=== PATIENT | female | born 1985 | race Caucasian/White ===

== ENCOUNTER 2021-10-19 02:19 | Emergency (ER) | payer MEDICAID, SELFPAY ==
[2021-10-19] VITALS (7 sets, daily range): BP systolic 106–137; BP diastolic 54–87; PULSE 63–90; RESP 12–21; TEMP 37.3; O2SAT 93–99; BMI 36.3
--- NOTE | ~2021-10-19 | US_ITS ---
EXAMINATION: US OB limited CLINICAL INFORMATION: Reason for Exam Twins, 6months?, PAIN COMPARISON: None. TECHNIQUE: Transabdominal ultrasound. FINDINGS: Single live intrauterine gestation is identified. M-mode interrogation demonstrates a heart rate of 129 bpm. No retrocardiac fluid collections identified. This examination does not comprise a comprehensive survey. Measurements obtained include the following: Biparietal diameter 4.73 cm Occipital frontal diameter 5.5 cm. Head circumference 17.5 cm. Abdominal circumference 14.92 cm Femur length 3.33 cm. No gross dysmorphic features are identified. No gross pleural effusions. Qualitatively normal volume of amniotic fluid. The visualized placenta is normal in appearance. Normal motion is noted during the exam. The cervical length measures 3.78 cm. The ovaries normal in appearance. The right ovary measures 3.0 cm x 1.6 and by 1.9 cm; left ovary measures 2.4 cm x 1.6 x 1.5 cm. US/US OB limited IMPRESSION: Single live intrauterine . Estimated weight 12 ounces. Sonographic estimated gestational age 20 weeks 3 days.
[2021-10-19 02:55] LABS: MANUAL DIFF FLAG NO
[2021-10-19 02:58] LABS: Basophils Percent Auto 0.3 % (0-2); Eosinophils Absolute Auto 0.1 X10*3/uL (0.0-0.4); Hematocrit 39.3 % (37.0-47.0); Hemoglobin 13.2 g/dl (12.0-16.0); Imm Gran Abs Auto 0.06 X10*3/uL (0.00-0.03); Imm Gran Pct Auto 0.5 % (0.0-0.4); Lymphocytes Absolute Auto 1.7 X10*3/uL (1.2-4.9); Lymphocytes Percent Auto 14.5 % (20-40); Mean Corpuscular HGB Conc 33.6 g/dl (31.0-35.0); Mean Corpuscular Hemoglobin 29.4 pg (27.0-33.0); Mean Corpuscular Volume 87.5 fL (80.0-98.0); Mean Platelet Volume 10.5 fL (9.4-12.3); Monocytes Absolute Auto 0.9 X10*3/uL (0.1-1.2); Monocytes Percent Auto 7.6 % (2-11); Neutrophils Percent Auto 76.1 % (45-73); Platelet Count 327 X10*3/uL (160-400); Red Blood Count 4.49 X10*6/uL (4.20-5.50); Red Cell Distribution Width 13.4 % (11.0-16.0); White Blood Count 11.9 X10*3/uL (4.8-10.8)
--- NOTE | 2021-10-19 02:58 | PC.NURSE ---
Sree BARRIOS overheard pt talking to herself in the room, while curtains were closed. Pt sometimes states I'm having contractions, but this condition appears to be very short and is gone in a few seconds. Blood tests have been ordered to test for . Pt states she is with twins.
[2021-10-19] MEDS: 0.9 % Sodium Chloride 1,000 ML 999 ML IV ×2 (03:03→04:37)
[2021-10-19 03:17] LABS: Alanine Aminotransferase 45 U/L (0-31); Albumin Level 3.7 g/dL (3.5-5.0); Alkaline Phosphatase 58 U/L (39-117); Anion Gap 15 (12-20); Aspartate Amino Transferase 39 U/L (5-31); Bilirubin Total 0.7 mg/dL (0.0-1.0); Blood Urea Nitrogen 5 mg/dL (9-16); Calcium 9.3 mg/dL (8.4-10.2); Carbon Dioxide 25 mmol/L (22-29); Chloride 102 mmol/L (96-108); Creatinine Clr Calc Pharmacy 133.3; Estimated Glomerular Filt Rate > 60; Glucose Random 81 mg/dL (60-115); Sodium 138 mmol/L (135-145); Total Protein 6.9 g/dL (6.5-8.0)
[2021-10-19 03:23] LABS: HCG Quantitative 12624 mIU/mL
[2021-10-19 03:42] LABS: Magnesium 1.7 mg/dL (1.6-2.6)
--- NOTE | 2021-10-19 03:52 | ED.GENADULT ---
HPI - General Adult General Chief complaint: Seizure Stated complaint: allergic reaction/dehydration Time Seen by Provider: 10/19/21 02:27 Source: patient Mode of arrival: EMS History of Present Illness HPI narrative: 36-year-old female who is brought in by EMS after being found in a parking lot across from [facility] as stating that she does not have anywhere to go as she is waiting for emergency housing . As per EMS a bystander called EMS/911. Patient states multiple symptoms to include seizures this evening as well as allergic reaction and also reports that she is 6 months with twins and that she is followed by her primary care provider but states she has also been seen at [facility], [facility], and [place]. With patient is asked have any pregnancies has she had she reports several . She otherwise denies any current complications and states that she wishes to be transferred to [facility] if she cannot have the baby here. She is also requesting water consider throat is dry as she is dehydrated . When patient is asked ruiz she is dehydrated she states that it is because she is and despite drinking water she pees too much . Patient states that she is on gabapentin for several conditions to include her seizure condition. Otherwise, she denies any fever, chills, nausea, vomiting, diarrhea. Related Data Allergies Allergy/AdvReac Type Severity Reaction Status Date / Time amoxicillin Allergy Unknown hives Verified 07/21/17 00:00 penicillin V Allergy Unknown RASH Verified 07/21/17 00:00 fish Allergy Unknown anaphylaxis Uncoded 07/21/17 00:00 NUTS Allergy Unknown anaphylaxis Uncoded 07/21/17 00:00 Review of Systems Review of Systems: Pertinent positives and negatives as stated in HPI 10 point review of systems is otherwise negative. PMFSH Past Medical History Source: nursing notes reviewed Physical Exam ED Vital Signs: Vital Signs - 24 hr 10/19/21 02:28 10/19/21 04:22 10/19/21 06:04 Temperature 99.1 F Pulse Rate 81 65 63 Respiratory Rate 18 20 18 Blood Pressure 131/83 108/62 106/54 L Pulse Oximetry 98 99 96 BMI result Body Mass Index 36.3 VITAL SIGNS: Reviewed. GENERAL: Well developed, well nourished, in no acute distress. HEAD: Normocephalic/atraumatic EYES: PERRLA, EOMI intact without pain, no nystagmus EARS: Ext canals without abnormality OROPHARYNX: no oral lesions noted, posterior pharynx clear, no tongue / lip/facial swelling LUNGS: Normal breath sounds. No adventitious sounds or accessory muscle use. SpO2<98> CARDIOVASCULAR: Regular rate and rhythm without noted murmurs ABDOMEN:Gravid,Soft, non-tender, non-distended with bowel sounds. MUSCULOSKELETAL: No tenderness, deformities, or effusions noted on gross inspection. EXTREMITIES: No cyanosis, clubbing or edema. SKIN: Inspection of the skin reveals no rashes NEUROLOGIC: Alert and oriented x 4. Strength and sensation to light touch were grossly intact x 4. Course Course Course Narrative: 36-year-old female with history and clinical presentation suggestive of current , but due to patient's concerning reports with regards to the circumstances surrounding her being brought to the hospital, she does not appear to be postictal at this time, and behavior somewhat unusual. There is no evidence to suggest angioedema or anaphylaxis and no noted rashes on clinical exam. Will obtain basic labs, confirm , check for infection, and also obtain ultrasound. On review all investigations there is minimal leukocytosis which is likely associated with current state, ultrasound demonstrates a single IUP at approximately 5 weeks. patient has no complaints of abdominal pain or vaginal bleeding. Patient further endorses that the oncology social worker Ilia Reese(sp?) out of [facility] has been trying to help her get emergency housing. Patient will remain here in the emergency room so that case management can evaluate the status on patient's lodging. Medical Decision Making Lab Data Result diagrams: 10/19/21 02:42 10/19/21 02:42 Labs: Lab Results 10/19/21 10/19/21 Range/Units 02:42 02:42 WBC 11.9 H (4.8-10.8) X10*3/uL RBC 4.49 (4.20-5.50) X10*6/uL Hgb 13.2 (12.0-16.0) g/dl Hct 39.3 (37.0-47.0) % MCV 87.5 (80.0-98.0) fL MCH 29.4 (27.0-33.0) pg MCHC 33.6 (31.0-35.0) g/dl RDW 13.4 (11.0-16.0) % Plt Count 327 (160-400) X10*3/uL MPV 10.5 (9.4-12.3) fL Immature Gran % (Auto) 0.5 H (0.0-0.4) % Neut % (Auto) 76.1 H (45-73) % Lymph % (Auto) 14.5 L (20-40) % [place] % (Auto) 7.6 (2-11) % Eos % (Auto) 1.0 (0-4) % Baso % (Auto) 0.3 (0-2) % Lymph # (Auto) 1.7 (1.2-4.9) X10*3/uL [place] # (Auto) 0.9 (0.1-1.2) X10*3/uL Eos # (Auto) 0.1 (0.0-0.4) X10*3/uL Baso # (Auto) 0.0 (0.0-0.2) X10*3/uL Abs Immat Gran (auto) 0.06 H (0.00-0.03) X10*3/uL Absolute Neuts (auto) 9.0 H (2.0-8.3) x10*3/uL Absolute Nucleated RBC 0.000 (0.0-0.012) X10*3/uL Nucleated RBC % (auto) 0.0 (0.0-0.2) /100WBC Sodium 138 (135-145) mmol/L Potassium 4.0 (3.3-5.1) mmol/L Chloride 102 (96-108) mmol/L Carbon Dioxide 25 (22-29) mmol/L Anion Gap 15 (12-20) BUN 5 L (9-16) mg/dL Creatinine 0.62 (0.5-1.4) mg/dL Estim Creat Clear Calc 133.3 Estimated GFR > 60 Random Glucose 81 (60-115) mg/dL Calcium 9.3 (8.4-10.2) mg/dL Magnesium 1.7 (1.6-2.6) mg/dL Total Bilirubin 0.7 (0.0-1.0) mg/dL AST 39 H (5-31) U/L ALT 45 H (0-31) U/L Alkaline Phosphatase 58 (39-117) U/L Total Protein 6.9 (6.5-8.0) g/dL Albumin 3.7 (3.5-5.0) g/dL Beta HCG, Quant 40074 mIU/mL Discharge Plan Discharge Clinical Impression: Currently , Seizure disorder, Pseudotumor cerebri Patient Disposition: Still a Patient
[2021-10-19 10:59] LABS: Glucose, Whole Blood 87 mg/dL (60-115)
[2021-10-19] MEDS: Folic Acid 1 MG TABLET PO (11:33)
[2021-10-19] MEDS: Multivitamin TABLET 1 TAB PO (11:33)
[2021-10-19] MEDS: Gabapentin 300 MG CAPSULE PO (12:23)
--- NOTE | 2021-10-19 15:57 | MHC.CM.ED ---
Received case management consult overnight. Patient came to ER after being brought in by EMS. Patient is homeless. Patient has a history of being bipolar. Patient was at [facility] on 10/08 for AMS. Patient was not found to be inpatient level of care. Patient has been speaking to herself. Dr Bhatt aware. Patient was transferred to the pod for a Care Team assessment. Patient wanted to be discharged. Dr Bhatt aware and agreeable. List of homeless shelters provided. Continue to monitor for d/c needs.
== END 2021-10-19 12:56 | disposition home or self-care (01) ==
PROVIDERS: Student in an Organized Health Care Education/Training Program; Emergency Provider Emergency Medicine
DX: O99.351 Diseases of the nervous system complicating pregnancy, first trimester (principal); G40.909 Epilepsy, unspecified, not intractable, without status epilepticus; G93.2 Benign intracranial hypertension; Z3A.01 Less than 8 weeks gestation of pregnancy; Z79.899 Other long term (current) drug therapy
CPT/HCPCS: 36415; 76815; 80053; 82947; 83735; 84702; 85025; 96360; 96361; 99284

== ENCOUNTER 2022-01-11 16:11 | Emergency (ER) | payer MEDICAID, SELFPAY ==
[2022-01-11] VITALS (7 sets, daily range): BP systolic 113–188; BP diastolic 54–92; PULSE 71–84; RESP 16–18; TEMP 35.8–36.6; O2SAT 93–98; BMI 41.1
--- NOTE | 2022-01-11 | ECG_ITS ---
Test Reason : CHESTPAIN Blood Pressure : / mmHG Vent. Rate : 083 BPM Atrial Rate : 083 BPM P-R Int : 134 ms QRS Dur : 084 ms QT Int : 386 ms P-R-T Axes : 001 002 024 degrees QTc Int : 453 ms Normal sinus rhythm Normal ECG No previous ECGs available Referred By: Generic ED Physician Electronically Signed By:Diego Paz
--- NOTE | ~2022-01-11 | XR_ITS ---
EXAMINATION: XR CHEST CLINICAL INFORMATION: Weakness COMPARISON: None TECHNIQUE: Frontal view of the chest was obtained. FINDINGS: No significant abnormality is noted involving the heart, lungs, mediastinum, bony thorax or soft tissues. XR/XR chest 1V IMPRESSION: Unremarkable examination.
[2022-01-11 17:23] LABS: Basophils Percent Auto 0.2 % (0-2); Eosinophils Absolute Auto 0.1 X10*3/uL (0.0-0.4); Eosinophils Percent Auto 0.7 % (0-4); Hematocrit 36.7 % (37.0-47.0); Hemoglobin 12.3 g/dl (12.0-16.0); Imm Gran Abs Auto 0.17 X10*3/uL (0.00-0.03); Imm Gran Pct Auto 1.2 % (0.0-0.4); Lymphocytes Absolute Auto 1.7 X10*3/uL (1.2-4.9); Lymphocytes Percent Auto 11.6 % (20-40); MANUAL DIFF FLAG NO; Mean Corpuscular HGB Conc 33.5 g/dl (31.0-35.0); Mean Corpuscular Hemoglobin 28.4 pg (27.0-33.0); Mean Corpuscular Volume 84.8 fL (80.0-98.0); Monocytes Percent Auto 6.9 % (2-11); Neutrophils Absolute Auto 11.4 x10*3/uL (2.0-8.3); Neutrophils Percent Auto 79.4 % (45-73); Platelet Count 280 X10*3/uL (160-400); Red Blood Count 4.33 X10*6/uL (4.20-5.50); Red Cell Distribution Width 14.6 % (11.0-16.0); White Blood Count 14.4 X10*3/uL (4.8-10.8)
[2022-01-11 17:42] LABS: Anion Gap 13 (12-20); Blood Urea Nitrogen 3 mg/dL (9-16); Calcium 8.7 mg/dL (8.4-10.2); Carbon Dioxide 22 mmol/L (22-29); Chloride 105 mmol/L (96-108); Creatinine Clr Calc Pharmacy 158.4; Estimated Glomerular Filt Rate > 60; Glucose Random 85 mg/dL (60-115); Lipase 5 U/L (8-78); Potassium 3.9 mmol/L (3.3-5.1); Sodium 136 mmol/L (135-145)
--- NOTE | 2022-01-11 17:49 | ED_ITS ---
HPI - General Adult General Chief complaint: Abdominal Pain Stated complaint: weakness Time Seen by Provider: 01/11/22 17:42 Source: patient Mode of arrival: ambulatory Limitations: no limitations History of Present Illness HPI narrative: 36-year-old female patient is 8 months as per patient consider as high risk follow at [facility], patient presented today for generalized weakness, vomiting, and diarrhea. Patient also been having high blood pressure and chest heaviness patient's s ymptoms started a month ago patient been having bilateral lower extremities swelling. Patient emergency department is able to tolerate p.o. intake and drinking water. Patient declined right upper quadrant pain or tenderness, or blurry vision. Patient declined vaginal discharge or bleed, patient been feeling uterine contraction every now and then but not regularly. No headache, no blurry vision, no neck stiffness, no CP, no SOB, no fever, or chills. No sick contacts, no recent travel. Related Data Home Medications Medication Instructions Recorded Confirmed gabapentin 300 mg tablet 300 mg PO TID 10/19/21 10/19/21 vitamin-ferrous fumarate tab PO 10/19/21 40 mg iron-folic acid 1 mg tablet Allergies Allergy/AdvReac Type Severity Reaction Status Date / Time amoxicillin Allergy Unknown hives Verified 01/11/22 17:02 penicillin V Allergy Unknown RASH Verified 01/11/22 17:02 fish Allergy Unknown anaphylaxis Uncoded 01/11/22 17:02 NUTS Allergy Unknown anaphylaxis Uncoded 01/11/22 17:02 Review of Systems Review of Systems: All other systems are reviewed and are negative Constitutional: Reports as per HPI and Reports no additional constitutional complaints Eyes: Reports as per HPI and Reports no additional eye complaints Reports system reviewed and no additional complaints, except as documented Cardiovascular: Reports as per HPI and Reports no additional cardiovascular complaints Respiratory: Reports as per HPI and Reports no additional respiratory complaints Gastrointestinal: Reports as per HPI and Reports no additional gastrointestinal complaints Genitourinary: Reports no additional female genitourinary complaints Musculoskeletal: Reports no additional musculoskeletal complaints Skin/Breast: Reports system reviewed and no additional complaints, except as docu Psychiatric: Reports no additional psychiatric complaints Endocrine: Reports no additional endocrine complaints Hematologic/Lymphatic: Reports no additional hematologic/lymphatic complaints Allergic/Immunologic: Reports no additional allergic/immunologic complaints Reports system reviewed and no additional complaints, except as documented and Reports Abnormal speech present [facility] Social History Social History Alcohol intake: never Patient Tobacco Use Status: Current everyday Tobacco user Use of substances other than those prescribed or required for medical reasons: No Advance Directives: Yes Advance Directives Information Provided: Yes Advance Directives on File: No Physical Exam ED Vital Signs: Vital Signs - 24 hr 01/11/22 16:59 01/11/22 18:00 01/11/22 18:10 Temperature 96.4 F L 97.9 F Pulse Rate 78 77 Respiratory Rate 18 16 Blood Pressure 134/79 113/56 L Pulse Oximetry 95 Oxygen Delivery Method Room Air Room Air 01/11/22 18:22 01/11/22 19:40 Temperature 97 F Pulse Rate 71 Respiratory Rate 17 Blood Pressure 118/61 Pulse Oximetry 98 97 Oxygen Delivery Method Room Air Room Air BMI result Body Mass Index 41.1 Vital signs have been reviewed as appeared to be correct. Blood pressure normal. Heart rate normal. Respiration rate normal. Temperature normal. Oxygen saturation normal. Appearance: Alert. Oriented X3. No acute distress. Head: Normal external exam. Normocephalic. Atraumatic. No Marie signs noted. No raccoon eyes noted Eyes: PERRLA. EOMI. Conjunctiva and sclera normal. Eyelids normal. ENT: TM's Normal. Pharynx normal. Uvula midline. Moist mucous membranes. No trismus noted. No drooling noted. No muffled voice noted. Neck: Normal inspection. Neck supple. FROM. No adenopathy. Thyroid Normal. No meningeal signs. No neck mass noted. CVS: Normal heart rate and rhythm. Heart sound normal. No murmurs noted. Pulses normal throughout. Respiratory: No respiratory distress. Painless inspiration. Breath sounds normal. No wheezes/rales/rhonchi noted. Chest nontender. No accessory muscle usage noted or decreased air movement noted. Abdomen: Soft and nontender. Bowel sounds normal in all 4 quadrants. No distention noted. No organomegaly noted. No visible injury noted. 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 Back: No CVA tenderness. Full range of motion noted. Skin: Skin warm and dry. Normal skin color. Normal skin turgor. No rashes/lesions/lacerations noted. Extremities: No lower extremity edema. Extremities exhibit normal range of motion. Extremities nontender. Neuro: Oriented X 3. Cranial nerve exam: II-XII are grossly intact No motor deficit. No sensory deficit. Reflexes normal. Course Course Course Narrative: This is a G11P 6, 8 months follows [facility] Ob patient came in with nonspecific complaints of generalized weakness, and overall not feeling well. Patient has stable vital signs not concern of pulmonary underlying disease in particular PE with regular pulse and respiratory rate and O2 sat. Patient also has unremarkable chest x-ray. Serial abdominal exam revealed nonspecific tenderness which felt to be normal pain for 8 months with no rebound tenderness or guarding. Pelvic exam showed no active labor. Patient has leukocytosis with increased immature granulocyte 1.2% shift patient down to have UTI without clinically pyelonephritis. The patient is overall ambiguous historian, I discussed the case at we 2 at [facility] with Dr. Bojorquez will transfer the patient to [facility] by ambulance for further evaluation. Medical Decision Making Lab Data Lab results reviewed: Yes I reviewed the patient's lab results. Result diagrams: 01/11/22 17:17 01/11/22 17:17 Labs: Lab Results 01/11/22 01/11/22 01/11/22 Range/Units 17:17 17:17 18:58 WBC 14.4 H (4.8-10.8) X10*3/uL RBC 4.33 (4.20-5.50) X10*6/uL Hgb 12.3 (12.0-16.0) g/dl Hct 36.7 L (37.0-47.0) % MCV 84.8 (80.0-98.0) fL MCH 28.4 (27.0-33.0) pg MCHC 33.5 (31.0-35.0) g/dl RDW 14.6 (11.0-16.0) % Plt Count 280 (160-400) X10*3/uL MPV 10.0 (9.4-12.3) fL Immature Gran % (Auto) 1.2 H (0.0-0.4) % Neut % (Auto) 79.4 H (45-73) % Lymph % (Auto) 11.6 L (20-40) % [place] % (Auto) 6.9 (2-11) % Eos % (Auto) 0.7 (0-4) % Baso % (Auto) 0.2 (0-2) % Lymph # (Auto) 1.7 (1.2-4.9) X10*3/uL [place] # (Auto) 1.0 (0.1-1.2) X10*3/uL Eos # (Auto) 0.1 (0.0-0.4) X10*3/uL Baso # (Auto) 0.0 (0.0-0.2) X10*3/uL Abs Immat Gran (auto) 0.17 H (0.00-0.03) X10*3/uL Absolute Neuts (auto) 11.4 H (2.0-8.3) x10*3/uL Absolute Nucleated RBC 0.000 (0.0-0.012) X10*3/uL Nucleated RBC % (auto) 0.0 (0.0-0.2) /100WBC Sodium 136 (135-145) mmol/L Potassium 3.9 (3.3-5.1) mmol/L Chloride 105 (96-108) mmol/L Carbon Dioxide 22 (22-29) mmol/L Anion Gap 13 (12-20) BUN 3 L (9-16) mg/dL Creatinine 0.56 (0.5-1.4) mg/dL Estim Creat Clear Calc 158.4 Estimated GFR > 60 Random Glucose 85 (60-115) mg/dL Lactic Acid (0.5-2.0) mmol/L Calcium 8.7 D (8.4-10.2) mg/dL Total Bilirubin 0.6 (0.0-1.0) mg/dL Direct Bilirubin 0.3 (0.0-0.5) mg/dL AST 14 D (5-31) U/L ALT 11 (0-31) U/L Alkaline Phosphatase 81 D (39-117) U/L Total Protein 6.4 L (6.5-8.0) g/dL Albumin 3.4 L (3.5-5.0) g/dL Lipase 5 L (8-78) U/L Urine Color Urine Appearance Urine pH (5.0-8.0) Ur Specific [place] (1.005-1.025) Urine Protein (NEG-TRACE) MG/DL Urine Glucose (UA) (NEG) MG/DL Urine Ketones (NEG) MG/DL Urine Blood (NEG) Urine Nitrite (NEG) Ur Leukocyte Esterase (NEG) Urine RBC (0) /HPF Urine WBC (0-4) /HPF Ur Squamous Epith Cells /LPF Urine Bacteria /LPF Influenza Type A (PCR) NEGATIVE (Negative) Influenza Type B (PCR) NEGATIVE (Negative) RSV RNA Qual (PCR) NEGATIVE (Negative) SARS-CoV-2 RNA (RT-PCR) NEGATIVE (Negative) 01/11/22 01/11/22 Range/Units 20:00 22:08 WBC (4.8-10.8) X10*3/uL RBC (4.20-5.50) X10*6/uL Hgb (12.0-16.0) g/dl Hct (37.0-47.0) % MCV (80.0-98.0) fL MCH (27.0-33.0) pg MCHC (31.0-35.0) g/dl RDW (11.0-16.0) % Plt Count (160-400) X10*3/uL MPV (9.4-12.3) fL Immature Gran % (Auto) (0.0-0.4) % Neut % (Auto) (45-73) % Lymph % (Auto) (20-40) % [place] % (Auto) (2-11) % Eos % (Auto) (0-4) % Baso % (Auto) (0-2) % Lymph # (Auto) (1.2-4.9) X10*3/uL [place] # (Auto) (0.1-1.2) X10*3/uL Eos # (Auto) (0.0-0.4) X10*3/uL Baso # (Auto) (0.0-0.2) X10*3/uL Abs Immat Gran (auto) (0.00-0.03) X10*3/uL Absolute Neuts (auto) (2.0-8.3) x10*3/uL Absolute Nucleated RBC (0.0-0.012) X10*3/uL Nucleated RBC % (auto) (0.0-0.2) /100WBC Sodium (135-145) mmol/L Potassium (3.3-5.1) mmol/L Chloride (96-108) mmol/L Carbon Dioxide (22-29) mmol/L Anion Gap (12-20) BUN (9-16) mg/dL Creatinine (0.5-1.4) mg/dL Estim Creat Clear Calc Estimated GFR Random Glucose (60-115) mg/dL Lactic Acid 1.3 (0.5-2.0) mmol/L Calcium (8.4-10.2) mg/dL Total Bilirubin (0.0-1.0) mg/dL Direct Bilirubin (0.0-0.5) mg/dL AST (5-31) U/L ALT (0-31) U/L Alkaline Phosphatase (39-117) U/L Total Protein (6.5-8.0) g/dL Albumin (3.5-5.0) g/dL Lipase (8-78) U/L Urine Color YELLOW Urine Appearance HAZY Urine pH 6.5 (5.0-8.0) Ur Specific [place] 1.010 (1.005-1.025) Urine Protein NEG (NEG-TRACE) MG/DL Urine Glucose (UA) NEG (NEG) MG/DL Urine Ketones 40 (NEG) MG/DL Urine Blood NEG (NEG) Urine Nitrite NEG (NEG) Ur Leukocyte Esterase 3+ H (NEG) Urine RBC 0-2 (0) /HPF Urine WBC 5-9 H (0-4) /HPF Ur Squamous Epith Cells 3+ /LPF Urine Bacteria 4+ /LPF Influenza Type A (PCR) (Negative) Influenza Type B (PCR) (Negative) RSV RNA Qual (PCR) (Negative) SARS-CoV-2 RNA (RT-PCR) (Negative) Imaging Data Chest x-ray: Attestation: I personally reviewed and interpreted this imaging study as follows: Radiologist's impression: Unremarkable examination. Discharge Plan Discharge Clinical Impression: Weakness generalized Patient Disposition: Xfer [facility] Hospital Transfer Details: We2 [facility] Prescriptions: No [facility] 40 mg iron-1 mg Tablet PO gabapentin 300 mg Tablet 300 mg PO TID
[2022-01-11 18:01] LABS: Alanine Aminotransferase 11 U/L (0-31); Albumin Level 3.4 g/dL (3.5-5.0); Alkaline Phosphatase 81 U/L (39-117); Aspartate Amino Transferase 14 U/L (5-31); Bilirubin Direct 0.3 mg/dL (0.0-0.5); Bilirubin Total 0.6 mg/dL (0.0-1.0); Total Protein 6.4 g/dL (6.5-8.0)
[2022-01-11] MEDS: 0.9 % Sodium Chloride 1,000 ML 999 ML IV ×2 (18:19→21:55)
[2022-01-11] MEDS: Acetaminophen 325 MG TABLET 650 MG PO (19:31)
[2022-01-11 19:43] LABS: Influenza A PCR NEGATIVE (Negative); Influenza B PCR NEGATIVE (Negative); Resp Syncy Virus RNA Qual PCR NEGATIVE (Negative); SARS COV2 PCR INHOUSE NEGATIVE (Negative)
[2022-01-11 20:11] LABS: Appearance Urine HAZY; Color Urine YELLOW; Glucose Urine UA NEG (NEG); Leukocyte Esterase Urine 3+ (NEG); Nitrite Urine NEG (NEG); PH 6.5 (5.0-8.0); UACC Culture Trigger YES; Urine Blood NEG (NEG); Urine Ketones 40 MG/DL (NEG); Urine Protein NEG (NEG-TRACE)
[2022-01-11 20:35] LABS: Bacteria Urine 4+ /LPF; RBC Urine 0-2 /HPF (0); Squamous Epithelial Cell Urine 3+ /LPF
[2022-01-11 22:27] LABS: Lactic Acid 1.3 mmol/L (0.5-2.0)
--- NOTE | 2022-01-11 23:46 | PC.NURSE ---
This US/Pct called [facility] transfer line at 2210 for ,awaiting a call back.At 2258 received a call back pt was excepted by pt is going to W2. [facility] was called at 2225 for a [facility] transfer ETA of an hour MD aware and RN aware.
== END 2022-01-12 02:06 | disposition short-term general hospital (02) ==
PROVIDERS: Emergency Provider Emergency Medicine
DX: O26.893 Other specified pregnancy related conditions, third trimester (principal); R53.1 Weakness; R19.7 Diarrhea, unspecified; R11.10 Vomiting, unspecified; Z3A.00 Weeks of gestation of pregnancy not specified; Z20.822 Contact with and (suspected) exposure to COVID-19
CPT/HCPCS: 0241U; 36415; 71045; 80048; 80076; 81001; 83605; 83690; 85025; 87040; 87086; 87147; 93005; 96361; 96365; 99285; J0696

== ENCOUNTER 2022-06-09 11:32 | Outpatient (REF) | payer MEDICAID, SELFPAY ==
[2022-06-09 11:54] LABS: MANUAL DIFF FLAG NO
[2022-06-09 11:58] LABS: Basophils Percent Auto 0.3 % (0-2); Eosinophils Absolute Auto 0.4 X10*3/uL (0.0-0.4); Eosinophils Percent Auto 3.7 % (0-4); Hematocrit 44.1 % (37.0-47.0); Hemoglobin 14.3 g/dl (12.0-16.0); Imm Gran Abs Auto 0.03 X10*3/uL (0.00-0.03); Imm Gran Pct Auto 0.3 % (0.0-0.4); Lymphocytes Absolute Auto 1.5 X10*3/uL (1.2-4.9); Lymphocytes Percent Auto 13.5 % (20-40); Mean Corpuscular HGB Conc 32.4 g/dl (31.0-35.0); Mean Corpuscular Hemoglobin 28.3 pg (27.0-33.0); Mean Corpuscular Volume 87.2 fL (80.0-98.0); Mean Platelet Volume 9.5 fL (9.4-12.3); Monocytes Absolute Auto 0.7 X10*3/uL (0.1-1.2); Monocytes Percent Auto 6.7 % (2-11); Neutrophils Absolute Auto 8.1 x10*3/uL (2.0-8.3); Neutrophils Percent Auto 75.5 % (45-73); Platelet Count 348 X10*3/uL (160-400); Red Blood Count 5.06 X10*6/uL (4.20-5.50); Red Cell Distribution Width 14.2 % (11.0-16.0); White Blood Count 10.7 X10*3/uL (4.8-10.8)
[2022-06-09 12:44] LABS: Erythrocyte Sedimentation Rate 3 MM/HR (0-20)
[2022-06-09 13:24] LABS: Alanine Aminotransferase 16 U/L (0-31); Albumin Level 4.5 g/dL (3.5-5.0); Alkaline Phosphatase 60 U/L (39-117); Anion Gap 13 (12-20); Aspartate Amino Transferase 15 U/L (5-31); Blood Urea Nitrogen 6 mg/dL (9-16); C Reactive Protein < 0.10 mg/dL (< or = 0.50); Calcium 9.5 mg/dL (8.4-10.2); Carbon Dioxide 22 mmol/L (22-29); Chloride 109 mmol/L (96-108); Cholesterol 162 mg/dL; Estimated Glomerular Filt Rate > 60; Folate 16.2 ng/mL (> or = 4.0); Glucose Random 97 mg/dL (60-115); HDL Cholesterol 41 mg/dL; LDL Cholesterol Calculated 103 mg/dl; Potassium 3.8 mmol/L (3.3-5.1); Rheumatoid Factor < 13.0 IU/mL (<15.0); Sodium 140 mmol/L (135-145); Total Protein 7.2 g/dL (6.5-8.0); Triglycerides 90 mg/dL; Vitamin B12 656 pg/mL (200-900); Vitamin D 25-OH Total 29.9 ng/mL (>30)
[2022-06-12 14:14] LABS: Anti Nuclear Antibody Screen POSITIVE (NEGATIVE)
== END 2022-06-09 11:33 | disposition home or self-care (01) ==
LOC: HO.LAB 11:32
PROVIDERS: Visit Provider Nurse Practitioner Primary Care
DX: M89.8X9 Other specified disorders of bone, unspecified site (principal); I10 Essential (primary) hypertension
CPT/HCPCS: 36415; 80053; 80061; 82306; 82607; 82746; 83735; 85025; 85652; 86038; 86039; 86140; 86431

== ENCOUNTER 2022-07-01 11:46 | Emergency (ER) | payer MEDICAID, SELFPAY ==
--- NOTE | ~2022-07-01 | US_ITS ---
EXAMINATION: US PELVIS CLINICAL INFORMATION: Heavy vaginal bleeding COMPARISON: None TECHNIQUE: Ultrasound of the pelvis is performed using both transabdominal and transvaginal transducers along with Doppler. Transvaginal imaging is performed due to inadequate visualization transabdominally. FINDINGS: Uterus: The uterus is anteverted and measures 9.1 x 4.5 x 5.2 cm. The double wall endometrial thickness is measured at 8 mm. Endometrial stripe is somewhat ill-defined. No discrete endometrial mass/polyp. The uterus is smooth in contour and has normal myometrial echogenicity. Small hypoechoic 1.6 x 1.2 x 1.1 cm left-sided intramural uterine fibroid in the mid body. Small isoechoic 1.5 x 1.2 x 1.3 cm left fundal intramural fibroid. A few anechoic nabothian cysts are noted, largest 2.9 cm in size Adnexa: Both ovaries are visualized. There is normal color flow to the adnexa. There is no ovarian torsion. There is no pelvic ascites or fluid collection. Right ovary measures 3 x 1.8 x 2 cm, volume 5.3 mL.Small 0.8 cm ovoid area of hyperechoic echotexture in the right ovary is nonspecific. No adnexal cyst or suspicious mass. Left ovary measures 3.3 x 1.7 x 2.7 cm, volume 7.4 mL US/US pelvic and transvaginal IMPRESSION: 1. The endometrial stripe measures 8 mm in double wall thickness. No discrete endometrial mass/polyp. 2. Small intramural uterine fibroids. 3. No adnexal cyst or mass.
[2022-07-01 11:54] VITALS: BP 122/91; PULSE 128; RESP 20; TEMP 36.7; O2SAT 95; BMI 34.0
--- NOTE | 2022-07-01 11:55 | ECG_ITS ---
Test Reason : SYNCOPE Blood Pressure : / mmHG Vent. Rate : 110 BPM Atrial Rate : 110 BPM P-R Int : 150 ms QRS Dur : 078 ms QT Int : 338 ms P-R-T Axes : 023 005 030 degrees QTc Int : 457 ms Sinus tachycardia Nonspecifc ST changes Abnormal ECG When compared with ECG of 11-JAN-2022 17:12, Nonspecific T wave abnormality, worse in Anterior leads Referred By: Imelda Villalobos Electronically Signed By:Diego Paz
--- NOTE | 2022-07-01 11:56 | ED.GENADULT ---
HPI - General Adult General Chief complaint: Vaginal Bleeding <MELA Bergeron - Last Filed: 07/01/22 11:59> Stated complaint: Heavy vaginal bleeding <MELA Bergeron - Last Filed: 07/01/22 11:59> Time Seen by Provider: 07/01/22 12:30 <MELA Bergeron - Last Filed: 07/01/22 11:59> Source: patient <Niurka Campbell MD - Last Filed: 07/01/22 16:41> Mode of arrival: ambulatory <Niurka Campbell MD - Last Filed: 07/01/22 16:41> History of Present Illness HPI narrative: 36-year-old female who initially presented stating that she has been ?bleeding since February when she gave on 03/03/2022 . When patient is asked about any interventions in the last 3 months she states that they have not done anything, and I was told that if I got again and had a natural that I could bleed to ?. Patient states that she has been changing a pad every 30 minutes and is not feeling well. She also reports dizziness and lightheadedness and states that she has passed out ?a few times?. <Niurka Campbell MD - Last Filed: 07/01/22 16:41> Related Data Home medications: Home Medications Medication Instructions Recorded Confirmed gabapentin 300 mg tablet 300 mg PO TID 10/19/21 10/19/21 vitamin-ferrous fumarate tab PO 10/19/21 40 mg iron-folic acid 1 mg tablet <MELA Bergeron - Last Filed: 07/01/22 11:59> Allergies/adverse reactions: Allergies Allergy/AdvReac Type Severity Reaction Status Date / Time amoxicillin Allergy Unknown hives Verified 01/11/22 17:02 penicillin V Allergy Unknown RASH Verified 01/11/22 17:02 fish Allergy Unknown anaphylaxis Uncoded 01/11/22 17:02 NUTS Allergy Unknown anaphylaxis Uncoded 01/11/22 17:02 <MELA Bergeron - Last Filed: 07/01/22 11:59> Review of Systems Review of Systems: Pertinent positives and negatives as stated in HPI. <Niurka Campbell MD - Last Filed: 07/01/22 16:41> PMFSH Past Medical History Source: nursing notes reviewed <Niurka Campbell MD - Last Filed: 07/01/22 16:41> Social History Social History: Social History Alcohol intake: never Patient Tobacco Use Status: Current everyday Tobacco user Advance Directives: No Advance Directives Information Provided: Yes <MELA Bergeron - Last Filed: 07/01/22 11:59> Physical Exam ED Vital Signs: Vital Signs - 24 hr 07/01/22 11:54 07/01/22 15:30 07/01/22 15:36 Temperature 98.0 F 98.8 F Pulse Rate 128 H 74 92 Respiratory Rate 20 15 Blood Pressure 122/91 H 119/70 119/75 Pulse Oximetry 95 96 Oxygen Delivery Method Room Air Room Air 07/01/22 15:32 07/01/22 15:36 Temperature Pulse Rate 90 109 H Respiratory Rate Blood Pressure 119/75 109/71 Pulse Oximetry Oxygen Delivery Method BMI result Body Mass Index 34.0 <MELA Bergeron - Last Filed: 07/01/22 11:59> Vital Signs - 24 hr 07/01/22 11:54 07/01/22 15:30 07/01/22 15:36 Temperature 98.0 F 98.8 F Pulse Rate 128 H 74 92 Respiratory Rate 20 15 Blood Pressure 122/91 H 119/70 119/75 Pulse Oximetry 95 96 Oxygen Delivery Method Room Air Room Air 07/01/22 15:32 07/01/22 15:36 Temperature Pulse Rate 90 109 H Respiratory Rate Blood Pressure 119/75 109/71 Pulse Oximetry Oxygen Delivery Method BMI result Body Mass Index 34.0 VITAL SIGNS: Reviewed. GENERAL: Well developed, well nourished, in no acute distress. HEAD: Normocephalic/atraumatic EYES: PERRLA, EOMI EARS: Ext canals without abnormality OROPHARYNX: no oral lesions noted, posterior pharynx clear LUNGS: Normal breath sounds. No adventitious sounds or accessory muscle use. SpO2<96> CARDIOVASCULAR: Regular rate and rhythm without noted murmurs ABDOMEN: Soft, non-tender, non-distended with bowel sounds. MUSCULOSKELETAL: No tenderness, deformities, or effusions noted on gross inspection. EXTREMITIES: No cyanosis, clubbing or edema. SKIN: Inspection of the skin reveals no rashes NEUROLOGIC: Alert and oriented x 4. Strength and sensation to light touch were grossly intact x 4. PSYCH: Patient with very erratic and aggressive verbal behavior that was witnessed by the nurse who was in the room(Gretchen) <Niurka Campbell MD - Last Filed: 07/01/22 16:41> Course Course Course Narrative: RME - 36 y/o female with history of seizure disorder who presents to the ER with worsening vaginal bleeding since the of her 10th child in February. Going through a pad every 30 minutes. Has pain everywhere. Reports syncope last night. Has chest pain, dizziness, lightheadedness, pelvic pain. Tachycardic 120, hyperverbal, difficulty answering questions. BP stable. Pale. Will get labs, coags, type and screen, pelvic U/S. Sent back to treatment room. <MELA Bergeron - Last Filed: 07/01/22 11:59> Medications Administered Discontinued Medications Generic Name Dose Route Start Last Admin Trade Name Freq PRN Reason Stop Dose Admin Acetaminophen 975 mg 07/01/22 12:58 07/01/22 13:10 Acetaminophen 325 Mg Tablet PO 07/01/22 12:59 975 mg ONCE ONE Administration Ibuprofen 400 mg 07/01/22 12:58 07/01/22 13:10 Ibuprofen 400 Mg Tablet PO 07/01/22 12:59 400 mg ONCE ONE Administration <MELA Bergeron - Last Filed: 07/01/22 11:59> Medications Administered Discontinued Medications Generic Name Dose Route Start Last Admin Trade Name Freq PRN Reason Stop Dose Admin Acetaminophen 975 mg 07/01/22 12:58 07/01/22 13:10 Acetaminophen 325 Mg Tablet PO 07/01/22 12:59 975 mg ONCE ONE Administration Ibuprofen 400 mg 07/01/22 12:58 07/01/22 13:10 Ibuprofen 400 Mg Tablet PO 07/01/22 12:59 400 mg ONCE ONE Administration <Niurka Campbell MD - Last Filed: 07/01/22 16:41> Medical Decision Making Medical Decision Making MDM Narrative: 36-year-old female who appeared to be somewhat erratic and upset, the nurse, Gretchen, confirmed that in fact the patient had a menstrual pad in place with a small approximate 2 cm area of bleeding and as per patient this pad had been in place since this morning. On my review of patient's workup my interpretation is there is no evidence of acute menorrhagia and ultrasound consistent with menstrual cycle and does demonstrate a small fibroid. Patient has had no further complaints, she is hemodynamically stable and received combination analgesics for her discomfort. Patient has no evidence of infection at this time and is otherwise stable for discharge to home. She will be provided with a lead generation marketing manager referral. Urinalysis is negative in the hematuria is likely due to menstrual bleeding as well as a noted leukocyte esterase due to the blood contamination. Patient is discharged home in stable condition <Niurka Campbell MD - Last Filed: 07/01/22 16:41> Differential Diagnosis Differential Diagnoses: The differential diagnosis associated with the presentation includes <Niurka Campbell MD - Last Filed: 07/01/22 16:41> Please see the discussion above <Niurka Campbell MD - Last Filed: 07/01/22 16:41> Lab Data MDM Lab Attestation statement: I reviewed the patient's lab results. <Niurka Campbell MD - Last Filed: 07/01/22 16:41> Please see the discussion above <Niurka Campbell MD - Last Filed: 07/01/22 16:41> Result Diagrams: 07/01/22 12:07 07/01/22 12:07 <MELA Bergeron - Last Filed: 07/01/22 11:59> Labs: Lab Results 07/01/22 07/01/22 07/01/22 Range/Units 12:07 12:07 12:07 WBC 11.9 H (4.8-10.8) X10*3/uL RBC 4.65 (4.20-5.50) X10*6/uL Hgb 13.4 (12.0-16.0) g/dl Hct 40.4 (37.0-47.0) % MCV 86.9 (80.0-98.0) fL MCH 28.8 (27.0-33.0) pg MCHC 33.2 (31.0-35.0) g/dl RDW 13.7 (11.0-16.0) % Plt Count 355 (160-400) X10*3/uL MPV 10.3 (9.4-12.3) fL Immature Gran % (Auto) 0.4 (0.0-0.4) % Neut % (Auto) 77.9 H (45-73) % Lymph % (Auto) 13.6 L (20-40) % [place] % (Auto) 5.8 (2-11) % Eos % (Auto) 1.9 (0-4) % Baso % (Auto) 0.4 (0-2) % Lymph # (Auto) 1.6 (1.2-4.9) X10*3/uL [place] # (Auto) 0.7 (0.1-1.2) X10*3/uL Eos # (Auto) 0.2 (0.0-0.4) X10*3/uL Baso # (Auto) 0.1 (0.0-0.2) X10*3/uL Abs Immat Gran (auto) 0.05 H (0.00-0.03) X10*3/uL Absolute Neuts (auto) 9.2 H (2.0-8.3) x10*3/uL Absolute Nucleated RBC 0.000 (0.0-0.012) X10*3/uL Nucleated RBC % (auto) 0.0 (0.0-0.2) /100WBC PT 11.9 (10.0-13.1) SEC INR 1.0 (0.9-1.1) APTT 28.6 (26.0-36.4) SEC Sodium 138 (135-145) mmol/L Potassium 3.8 (3.3-5.1) mmol/L Chloride 107 (96-108) mmol/L Carbon Dioxide 21 L (22-29) mmol/L Anion Gap 14 (12-20) BUN 6 L (9-16) mg/dL Creatinine 0.80 (0.5-1.4) mg/dL Estim Creat Clear Calc 103.7 Estimated GFR > 60 Random Glucose 163 H (60-115) mg/dL Calcium 9.3 (8.4-10.2) mg/dL Magnesium 1.8 (1.6-2.6) mg/dL Iron 51 (30-160) mcg/dL TIBC 298 (228-428) mcg/dL % Saturation 17 (15-50) % Unsat Iron Binding 247 ug/dL Total Bilirubin 1.5 H (0.0-1.0) mg/dL Direct Bilirubin 0.4 (0.0-0.5) mg/dL AST 24 (5-31) U/L ALT 31 (0-31) U/L Alkaline Phosphatase 62 (39-117) U/L Total Protein 6.8 (6.5-8.0) g/dL Albumin 4.2 (3.5-5.0) g/dL Urine Color Urine Appearance Urine pH (5.0-9.0) Ur Specific [place] (1.005-1.025) Urine Protein (Neg-Trace) mg/dL Urine Glucose (UA) (Negative) mg/dL Urine Ketones (Negative) mg/dL Urine Blood (Negative) Urine Nitrite (Negative) Ur Leukocyte Esterase (Negative) Urine Test (NEGATIVE) 07/01/22 07/01/22 Range/Units 15:50 15:50 WBC (4.8-10.8) X10*3/uL RBC (4.20-5.50) X10*6/uL Hgb (12.0-16.0) g/dl Hct (37.0-47.0) % MCV (80.0-98.0) fL MCH (27.0-33.0) pg MCHC (31.0-35.0) g/dl RDW (11.0-16.0) % Plt Count (160-400) X10*3/uL MPV (9.4-12.3) fL Immature Gran % (Auto) (0.0-0.4) % Neut % (Auto) (45-73) % Lymph % (Auto) (20-40) % [place] % (Auto) (2-11) % Eos % (Auto) (0-4) % Baso % (Auto) (0-2) % Lymph # (Auto) (1.2-4.9) X10*3/uL [place] # (Auto) (0.1-1.2) X10*3/uL Eos # (Auto) (0.0-0.4) X10*3/uL Baso # (Auto) (0.0-0.2) X10*3/uL Abs Immat Gran (auto) (0.00-0.03) X10*3/uL Absolute Neuts (auto) (2.0-8.3) x10*3/uL Absolute Nucleated RBC (0.0-0.012) X10*3/uL Nucleated RBC % (auto) (0.0-0.2) /100WBC PT (10.0-13.1) SEC INR (0.9-1.1) APTT (26.0-36.4) SEC Sodium (135-145) mmol/L Potassium (3.3-5.1) mmol/L Chloride (96-108) mmol/L Carbon Dioxide (22-29) mmol/L Anion Gap (12-20) BUN (9-16) mg/dL Creatinine (0.5-1.4) mg/dL Estim Creat Clear Calc Estimated GFR Random Glucose (60-115) mg/dL Calcium (8.4-10.2) mg/dL Magnesium (1.6-2.6) mg/dL Iron (30-160) mcg/dL TIBC (228-428) mcg/dL % Saturation (15-50) % Unsat Iron Binding ug/dL Total Bilirubin (0.0-1.0) mg/dL Direct Bilirubin (0.0-0.5) mg/dL AST (5-31) U/L ALT (0-31) U/L Alkaline Phosphatase (39-117) U/L Total Protein (6.5-8.0) g/dL Albumin (3.5-5.0) g/dL Urine Color RED Urine Appearance Hazy Urine pH 6.0 (5.0-9.0) Ur Specific [place] 1.010 (1.005-1.025) Urine Protein 100 (2+) H (Neg-Trace) mg/dL Urine Glucose (UA) Negative (Negative) mg/dL Urine Ketones Trace (Negative) mg/dL Urine Blood Large (3+) H (Negative) Urine Nitrite Negative (Negative) Ur Leukocyte Esterase Moderate (2+) H (Negative) Urine Test NEGATIVE (NEGATIVE) <MELA Bergeron - Last Filed: 07/01/22 11:59> Lab Results 07/01/22 07/01/22 07/01/22 Range/Units 12:07 12:07 12:07 WBC 11.9 H (4.8-10.8) X10*3/uL RBC 4.65 (4.20-5.50) X10*6/uL Hgb 13.4 (12.0-16.0) g/dl Hct 40.4 (37.0-47.0) % MCV 86.9 (80.0-98.0) fL MCH 28.8 (27.0-33.0) pg MCHC 33.2 (31.0-35.0) g/dl RDW 13.7 (11.0-16.0) % Plt Count 355 (160-400) X10*3/uL MPV 10.3 (9.4-12.3) fL Immature Gran % (Auto) 0.4 (0.0-0.4) % Neut % (Auto) 77.9 H (45-73) % Lymph % (Auto) 13.6 L (20-40) % [place] % (Auto) 5.8 (2-11) % Eos % (Auto) 1.9 (0-4) % Baso % (Auto) 0.4 (0-2) % Lymph # (Auto) 1.6 (1.2-4.9) X10*3/uL [place] # (Auto) 0.7 (0.1-1.2) X10*3/uL Eos # (Auto) 0.2 (0.0-0.4) X10*3/uL Baso # (Auto) 0.1 (0.0-0.2) X10*3/uL Abs Immat Gran (auto) 0.05 H (0.00-0.03) X10*3/uL Absolute Neuts (auto) 9.2 H (2.0-8.3) x10*3/uL Absolute Nucleated RBC 0.000 (0.0-0.012) X10*3/uL Nucleated RBC % (auto) 0.0 (0.0-0.2) /100WBC PT 11.9 (10.0-13.1) SEC INR 1.0 (0.9-1.1) APTT 28.6 (26.0-36.4) SEC Sodium 138 (135-145) mmol/L Potassium 3.8 (3.3-5.1) mmol/L Chloride 107 (96-108) mmol/L Carbon Dioxide 21 L (22-29) mmol/L Anion Gap 14 (12-20) BUN 6 L (9-16) mg/dL Creatinine 0.80 (0.5-1.4) mg/dL Estim Creat Clear Calc 103.7 Estimated GFR > 60 Random Glucose 163 H (60-115) mg/dL Calcium 9.3 (8.4-10.2) mg/dL Magnesium 1.8 (1.6-2.6) mg/dL Iron 51 (30-160) mcg/dL TIBC 298 (228-428) mcg/dL % Saturation 17 (15-50) % Unsat Iron Binding 247 ug/dL Total Bilirubin 1.5 H (0.0-1.0) mg/dL Direct Bilirubin 0.4 (0.0-0.5) mg/dL AST 24 (5-31) U/L ALT 31 (0-31) U/L Alkaline Phosphatase 62 (39-117) U/L Total Protein 6.8 (6.5-8.0) g/dL Albumin 4.2 (3.5-5.0) g/dL Urine Color Urine Appearance Urine pH (5.0-9.0) Ur Specific [place] (1.005-1.025) Urine Protein (Neg-Trace) mg/dL Urine Glucose (UA) (Negative) mg/dL Urine Ketones (Negative) mg/dL Urine Blood (Negative) Urine Nitrite (Negative) Ur Leukocyte Esterase (Negative) Urine Test (NEGATIVE) 07/01/22 07/01/22 Range/Units 15:50 15:50 WBC (4.8-10.8) X10*3/uL RBC (4.20-5.50) X10*6/uL Hgb (12.0-16.0) g/dl Hct (37.0-47.0) % MCV (80.0-98.0) fL MCH (27.0-33.0) pg MCHC (31.0-35.0) g/dl RDW (11.0-16.0) % Plt Count (160-400) X10*3/uL MPV (9.4-12.3) fL Immature Gran % (Auto) (0.0-0.4) % Neut % (Auto) (45-73) % Lymph % (Auto) (20-40) % [place] % (Auto) (2-11) % Eos % (Auto) (0-4) % Baso % (Auto) (0-2) % Lymph # (Auto) (1.2-4.9) X10*3/uL [place] # (Auto) (0.1-1.2) X10*3/uL Eos # (Auto) (0.0-0.4) X10*3/uL Baso # (Auto) (0.0-0.2) X10*3/uL Abs Immat Gran (auto) (0.00-0.03) X10*3/uL Absolute Neuts (auto) (2.0-8.3) x10*3/uL Absolute Nucleated RBC (0.0-0.012) X10*3/uL Nucleated RBC % (auto) (0.0-0.2) /100WBC PT (10.0-13.1) SEC INR (0.9-1.1) APTT (26.0-36.4) SEC Sodium (135-145) mmol/L Potassium (3.3-5.1) mmol/L Chloride (96-108) mmol/L Carbon Dioxide (22-29) mmol/L Anion Gap (12-20) BUN (9-16) mg/dL Creatinine (0.5-1.4) mg/dL Estim Creat Clear Calc Estimated GFR Random Glucose (60-115) mg/dL Calcium (8.4-10.2) mg/dL Magnesium (1.6-2.6) mg/dL Iron (30-160) mcg/dL TIBC (228-428) mcg/dL % Saturation (15-50) % Unsat Iron Binding ug/dL Total Bilirubin (0.0-1.0) mg/dL Direct Bilirubin (0.0-0.5) mg/dL AST (5-31) U/L ALT (0-31) U/L Alkaline Phosphatase (39-117) U/L Total Protein (6.5-8.0) g/dL Albumin (3.5-5.0) g/dL Urine Color RED Urine Appearance Hazy Urine pH 6.0 (5.0-9.0) Ur Specific [place] 1.010 (1.005-1.025) Urine Protein 100 (2+) H (Neg-Trace) mg/dL Urine Glucose (UA) Negative (Negative) mg/dL Urine Ketones Trace (Negative) mg/dL Urine Blood Large (3+) H (Negative) Urine Nitrite Negative (Negative) Ur Leukocyte Esterase Moderate (2+) H (Negative) Urine Test NEGATIVE (NEGATIVE) <Niurka Campbell MD - Last Filed: 07/01/22 16:41> Radiology Impression Radiologist Impression: My interpretation is in agreement with radiology's impression of the imaging study <Niurka Campbell MD - Last Filed: 07/01/22 16:41> External Record Review External record reviewed: Outpatient record and Prior outpatient labs <Niurka Campbell MD - Last Filed: 07/01/22 16:41> Critical Care Time Critical Care Time Critical Care Time: Yes <Niurka Campbell MD - Last Filed: 07/01/22 16:41> Total Critical Care Time: 30 <Niurka Campbell MD - Last Filed: 07/01/22 16:41> Attestation: I personally attest to this time spent taking care of the patient. <Niurka Campbell MD - Last Filed: 07/01/22 16:41> Discharge Plan Discharge Clinical Impression: Menstrual cramp, Menstrual bleeding problem <MELA Bergeron - Last Filed: 07/01/22 11:59> Patient Disposition: Home, Self-Care <MELA Bergeron - Last Filed: 07/01/22 11:59> Instructions: Dysmenorrhea (ED) <MELA Bergeron - Last Filed: 07/01/22 11:59> Additional Instructions: 1. Resume home medications as prescribed. Recommend [id number] Tylenol/ibuprofen as needed for menstrual discomfort. 2. You have been provided with a referral to follow-up with gynecology. 3. Please follow-up with your own primary care provider as well. <MELA Bergeron - Last Filed: 07/01/22 11:59> Prescriptions: No Action Care 40 mg iron-1 mg Tablet PO gabapentin 300 mg Tablet 300 mg PO TID <MELA Bergeron - Last Filed: 07/01/22 11:59> Referrals: Mary Ann Ward NP [Primary Care Provider] - Josh Otero MD [Physician] - <MELA Bergeron - Last Filed: 07/01/22 11:59>
[2022-07-01 12:12] LABS: MANUAL DIFF FLAG NO
[2022-07-01 12:16] LABS: Basophils Absolute Auto 0.1 X10*3/uL (0.0-0.2); Basophils Percent Auto 0.4 % (0-2); Eosinophils Absolute Auto 0.2 X10*3/uL (0.0-0.4); Eosinophils Percent Auto 1.9 % (0-4); Hematocrit 40.4 % (37.0-47.0); Hemoglobin 13.4 g/dl (12.0-16.0); Imm Gran Abs Auto 0.05 X10*3/uL (0.00-0.03); Imm Gran Pct Auto 0.4 % (0.0-0.4); Lymphocytes Absolute Auto 1.6 X10*3/uL (1.2-4.9); Lymphocytes Percent Auto 13.6 % (20-40); Mean Corpuscular HGB Conc 33.2 g/dl (31.0-35.0); Mean Corpuscular Hemoglobin 28.8 pg (27.0-33.0); Mean Corpuscular Volume 86.9 fL (80.0-98.0); Mean Platelet Volume 10.3 fL (9.4-12.3); Monocytes Absolute Auto 0.7 X10*3/uL (0.1-1.2); Monocytes Percent Auto 5.8 % (2-11); Neutrophils Absolute Auto 9.2 x10*3/uL (2.0-8.3); Neutrophils Percent Auto 77.9 % (45-73); Platelet Count 355 X10*3/uL (160-400); Red Blood Count 4.65 X10*6/uL (4.20-5.50); Red Cell Distribution Width 13.7 % (11.0-16.0); White Blood Count 11.9 X10*3/uL (4.8-10.8)
[2022-07-01 12:22] LABS: Prothrombin Time 11.9 SEC (10.0-13.1)
[2022-07-01 12:24] LABS: Partial Thromboplastin Time 28.6 SEC (26.0-36.4)
[2022-07-01 12:31] LABS: Alanine Aminotransferase 31 U/L (0-31); Albumin Level 4.2 g/dL (3.5-5.0); Alkaline Phosphatase 62 U/L (39-117); Anion Gap 14 (12-20); Aspartate Amino Transferase 24 U/L (5-31); Bilirubin Direct 0.4 mg/dL (0.0-0.5); Bilirubin Total 1.5 mg/dL (0.0-1.0); Blood Urea Nitrogen 6 mg/dL (9-16); Calcium 9.3 mg/dL (8.4-10.2); Carbon Dioxide 21 mmol/L (22-29); Chloride 107 mmol/L (96-108); Creatinine Clr Calc Pharmacy 103.7; Estimated Glomerular Filt Rate > 60; Glucose Random 163 mg/dL (60-115); Iron 51 mcg/dL (30-160); Magnesium 1.8 mg/dL (1.6-2.6); Percent Iron Saturation 17 % (15-50); Potassium 3.8 mmol/L (3.3-5.1); Sodium 138 mmol/L (135-145); Total Iron Binding Capacity 298 mcg/dL (228-428); Total Protein 6.8 g/dL (6.5-8.0); Unsaturated Iron Binding 247 ug/dL
[2022-07-01] MEDS: Ibuprofen 400 MG TABLET PO (13:10)
[2022-07-01] MEDS: Acetaminophen 325 MG TABLET 975 MG PO (13:10)
--- NOTE | 2022-07-01 13:13 | PC.NURSE ---
Patient medicated with Ibuprofen and Tylenol as order by provider for headache as reported by patient pain level 10 out of 10 . patient aware of plan of care .
--- NOTE | 2022-07-01 15:00 | PC.NURSE ---
patient a/ox4 . sylla . heart rate regular 89 beats per minute . breathing even and unlabored . lungs clear throughout . abdomen soft , positive bowel sounds throughout .IV placed in left A.C . patient placed on optometric technician . patient aware of plan of care . patient reports heavy vaginal bleeding with clots since of child in february , moderate amount of blood noted on maxi pad patient is wearing now . labs have been done . patient is aware of plan of care .
[2022-07-01 15:30] VITALS: BP 119/70; PULSE 74
[2022-07-01 15:32] VITALS: BP 119/75; PULSE 90
[2022-07-01 15:36] VITALS: BP 109/71; BP 119/75; PULSE 109; PULSE 92; RESP 15; TEMP 37.1; O2SAT 96
[2022-07-01 16:29] LABS: Appearance Urine Hazy; Glucose Urine UA Negative (Negative); Leukocyte Esterase Urine Moderate (2+) (Negative); Nitrite Urine Negative (Negative); UMIC TRIGGER UACC YES; Urine Blood Large (3+) (Negative); Urine Ketones Trace mg/dL (Negative); Urine Protein 100 (2+) mg/dL (Neg-Trace)
[2022-07-01 16:30] LABS: UPreg QC Valid YES; Urine Pregnancy NEGATIVE (NEGATIVE)
[2022-07-01 16:34] LABS: Color Urine RED
[2022-07-01 16:50] LABS: Bacteria Urine Trace (None Seen); Hyaline Casts Urine 0-2 /LPF (0-2); RBC Urine >20 /HPF (0-2); UACC Culture Trigger YES; WBC Urine 21-50 /HPF (0-5)
--- NOTE | 2022-07-01 17:29 | PC.NURSE ---
patient made aware of labs that are within normal limits , she has been medicated for reporting headache . She is refusing to leave as she feels she need surgery for reporting bleeding since February . Provider aware and she has gone in to talk to patient again to follow up with OBGYN for vaginal bleeding issues at this time VSS / labs within normal limits at this time . Security called for assistance due to patient becoming aggressive . patient escorted out of facility .
== END 2022-07-01 17:33 | disposition home or self-care (01) ==
PROVIDERS: Physician Assistant; Emergency Provider Student in an Organized Health Care Education/Training Program; PCP Nurse Practitioner Primary Care
DX: N93.8 Other specified abnormal uterine and vaginal bleeding (principal); R10.2 Pelvic and perineal pain; F17.200 Nicotine dependence, unspecified, uncomplicated
CPT/HCPCS: 36415; 76830; 76856; 80048; 80076; 81001; 81025; 83540; 83735; 85025; 85610; 85730; 87086; 87147; 93005; 99284

== ENCOUNTER 2023-05-28 19:11 | Emergency (ER) | payer MEDICAID, SELFPAY ==
--- NOTE | ~2023-05-28 | CT_ITS ---
EXAMINATION: CT ABDOMEN AND PELVIS WITHOUT CONTRAST CLINICAL INFORMATION: Abdominal pain. COMPARISON: Pelvic ultrasound dated 07/01/2022. TECHNIQUE: Multidetector volumetric imaging was performed from the superior aspect of the liver through the pubic symphysis. Sagittal and coronal reformatted images were obtained on the technologist's workstation. This CT examination was performed using dose optimization techniques as appropriate, variously including the following: *Automated exposure control *Adjustment of mA and/or kV according to patient size (this includes techniques or standardized protocols for targeted exams where dose is matched to indication/reason for exam; i.e. extremities or head) *Use of iterative reconstruction technique DLP: 128 mGy-cm FINDINGS: LUNG BASES: The visualized lung bases are unremarkable. LIVER, GALLBLADDER, AND BILIARY TREE: The liver is normal in size, shape, and attenuation. No focal hepatic lesion or biliary ductal dilatation is present. The gallbladder is surgically absent. PANCREAS: Unremarkable. SPLEEN: Unremarkable. ADRENAL GLANDS: Unremarkable. KIDNEYS AND URETERS: The kidneys are normal in size, shape, and attenuation. No hydronephrosis, hydroureter, or calculi seen. No perinephric stranding. BLADDER: Unremarkable. GASTROINTESTINAL TRACT: There is a small hiatus hernia. The small and large bowel are unremarkable. The appendix is unremarkable. ABDOMINAL WALL: There is a small to moderate fat-containing umbilical hernia. LYMPH NODES: Normal. VASCULAR: Unremarkable. PELVIC VISCERA: The uterus and adnexa are unremarkable. OSSEOUS STRUCTURES: There is multi-level thoracolumbar degenerative disc disease and spondylosis. No acute or aggressive osseous finding is noted. CT/CT abdomen pelvis wo IV con IMPRESSION: 1. No bowel obstruction, free intraperitoneal air or abscess is seen. There is no appendicitis or diverticulitis. 2. No urinary calculus or obstruction is seen. 3. There is no abdominopelvic mass, free fluid or lymphadenopathy. 4. There is a small hiatus hernia. 5. The gallbladder is surgically absent. 6. There are degenerative changes of the thoracolumbar spine. Fleischner guidelines were followed.
[2023-05-28 20:04] VITALS: BP 156/70; PULSE 90; RESP 18; TEMP 36.3; O2SAT 96; BMI 36.6
--- NOTE | 2023-05-28 20:22 | ED.ABDPAIN ---
HPI - Abdominal Pain General Chief Complaint: Abdominal Pain Stated Complaint: abd pain sent from urgent care Time Seen by Provider: 05/29/23 00:38 Source: patient Mode of arrival: ambulatory Limitations: no limitations History of Present Illness HPI narrative: Patient comes to the emergency room complaining of abdominal pain for 1 week. Patient went to urgent care today, patient was sent to emergency room for further evaluation. Patient received Zofran earlier today, and also tested negative for influenza and COVID that urgent care. Related Data Home Medications Medication Instructions Recorded Confirmed gabapentin 300 mg tablet 300 mg PO TID 10/19/21 10/19/21 vitamin-ferrous fumarate tab PO 10/19/21 40 mg iron-folic acid 1 mg tablet Previous Rx's Medication Instructions Recorded hyoscyamine sulfate 0.125 mg tablet 0.125 mg PO QID #10 tabs 05/29/23 ondansetron 4 mg disintegrating 4 mg PO Q6H PRN nausea and 05/29/23 tablet vomiting #10 tabs Allergies Allergy/AdvReac Type Severity Reaction Status Date / Time amoxicillin Allergy Unknown hives Verified 05/28/23 12:13 penicillin V Allergy Unknown RASH Verified 05/28/23 12:13 morphine AdvReac Unknown Verified 05/28/23 20:03 fish Allergy Unknown anaphylaxis Uncoded 01/11/22 17:02 NUTS Allergy Unknown anaphylaxis Uncoded 01/11/22 17:02 Review of Systems Review of Systems Constitutional : No Weight loss, No Fever, No Chills, No Night Sweats, No Fatigue, No Malaise ENT/Mouth : No Hearing loss, No Ear Pain, No Nasal Congestion, No Sinus Pain, No Hoarseness, No sore throat, No Rhinorrhea, No Swallowing Difficulty Eyes: No Eye Pain, No Swelling, No Redness, No Foreign Body, No Discharge, No Vision Changes Cardiovascular : No Chest Pain, No SOB, No Dyspnea on Exertion, No Orthopnea, No Edema, No Palpitations Respiratory : No Cough, No Sputum, No Wheezing, No Smoke Exposure, No Dyspnea Gastrointestinal : Blaming of nausea and vomiting, no diarrhea, complaining of abdominal discomfort especially in the right lower quadrant Genitourinary : no irregular bleeding, No Dysuria, No Urinary Frequency, No Hematuria, No Urinary Incontinence, No Urgency, No Flank Pain, No Urinary Flow Changes, No Hesitancy Musculoskeletal : No joint pain, No Myalgias, No Joint Swelling Skin : No Skin Lesions, No rash Neuro : No Weakness, No Numbness, No Paresthesias, No Loss of Consciousness, No Dizziness, No Headache Psych : No Anxiety/Panic, No Depression, No SI/HI/AH/VH, No Social Issues, Heme/Lymph: No Bruising, No Bleeding,No Lymphadenopathy Endocrine : No Polyuria, No Polydipsia, No Temperature Intolerance [facility] Social History Social History Alcohol intake: never Patient Tobacco Use Status: Current everyday Tobacco user Advance Directives: No Advance Directives Information Provided: No Physical Exam ED Vital Signs: Vital Signs - 24 hr 05/28/23 20:04 05/29/23 00:00 Temperature 97.4 F 97.1 F Pulse Rate 90 101 H Respiratory Rate 18 20 Blood Pressure 156/70 H 144/79 H Pulse Oximetry 96 99 Oxygen Delivery Method Room Air Room Air BMI result Body Mass Index 36.6 Const Other: Appearance: Alert. Oriented X3. No acute distress. Eyes: Pupils equal, round and reactive to light. ENT: Pharynx normal. Neck: Normal inspection. Neck supple. No lymph nodes noted. No crepitus CVS: Normal heart rate and rhythm. Pulses normal. Normal S1 and S2 Respiratory: No respiratory distress. Breath sounds normal. No Wheezing. No rales Abdomen: Soft and nontender. No rigidity. No distention. No rebound, no guarding, negative Boone sign Skin: Skin warm and dry. Normal skin color. Normal skin turgor. Extremities: No lower extremity edema. No Lacerations. No Rash Neuro: Oriented X 3. No motor deficit. No sensory deficit. Moving all extremities. No slurred speech. CN 2 through 12 grossly intact Psych: calm, cooperative, normal affect Medical Decision Making Medical Decision Making MDM Narrative: This is an RME: Additional HPI, ROS, PE not included below will be deferred to primary provider. This is a 37-year-old female presenting to the emergency department with complaints of abdominal pain x1 week. She was seen by urgent care and was told to come to the emergency room for further evaluation. To negative COVID flu test at that time. She has had nausea, vomiting, fevers, and abdominal pain. Abdominal pain is in the right and left quadrant. Plan: Labs, UA, CT abd/pelvis My interpretation of labs: Hematology shows a white blood cell count of 11.8 which is chronic for the patient, chemistry unremarkable, LFTs at baseline, lipase negative, hCG negative -I reviewed patient's previous labs. Patient has had UTIs in the past. Urinalysis pending -interpretation of CT scan, SBO, gallbladder is absent, no obvious abnormality -urine is negative for UTI Differential Diagnosis Differential Diagnoses: The differential diagnosis associated with the presentation includes (UA, appendicitis, ovarian cyst, viral illness) Admission/Observation Consideration of admission/observation: Escalation of care including admission/observation considered (Given patient's initial presentation, patient was considered) Lab Data MDM Lab Attestation statement: I reviewed the patient's lab results. 05/28/23 21:10 05/28/23 21:10 Labs: Lab Results 05/28/23 05/29/23 Range/Units 21:10 01:27 WBC 11.8 H (4.8-10.8) X10*3/uL RBC 5.36 (4.20-5.50) X10*6/uL Hgb 15.2 (12.0-16.0) g/dl Hct 45.4 (37.0-47.0) % MCV 84.7 (80.0-98.0) fL MCH 28.4 (27.0-33.0) pg MCHC 33.5 (31.0-35.0) g/dl RDW 13.8 (11.0-16.0) % Plt Count 405 H (160-400) X10*3/uL MPV 9.4 (9.4-12.3) fL Immature Gran % (Auto) 0.3 (0.0-0.4) % Neut % (Auto) 74.0 H (45-73) % Lymph % (Auto) 15.8 L (20-40) % [place] % (Auto) 8.6 (2-11) % Eos % (Auto) 1.0 (0-4) % Baso % (Auto) 0.3 (0-2) % Lymph # (Auto) 1.9 (1.2-4.9) X10*3/uL [place] # (Auto) 1.0 (0.1-1.2) X10*3/uL Eos # (Auto) 0.1 (0.0-0.4) X10*3/uL Baso # (Auto) 0.0 (0.0-0.2) X10*3/uL Abs Immat Gran (auto) 0.04 H (0.00-0.03) X10*3/uL Absolute Neuts (auto) 8.8 H (2.0-8.3) x10*3/uL Absolute Nucleated RBC 0.000 (0.0-0.012) X10*3/uL Nucleated RBC % (auto) 0.0 (0.0-0.2) /100WBC Sodium 142 (135-145) mmol/L Potassium 3.4 (3.3-5.1) mmol/L Chloride 101 (96-108) mmol/L Carbon Dioxide 29 (22-29) mmol/L Anion Gap 15 (12-20) BUN 4 L (9-16) mg/dL Creatinine 0.76 (0.5-1.4) mg/dL Estim Creat Clear Calc 108.2 Estimated GFR > 60 Random Glucose 111 (60-115) mg/dL Calcium 9.7 (8.4-10.2) mg/dL Total Bilirubin 1.3 H (0.0-1.0) mg/dL Direct Bilirubin 0.4 (0.0-0.5) mg/dL AST 20 (5-31) U/L ALT 30 (0-31) U/L Alkaline Phosphatase 84 (39-117) U/L Total Protein 8.0 (6.5-8.0) g/dL Albumin 4.5 (3.5-5.0) g/dL Lipase 21 (8-78) U/L Beta HCG, Quant < 2 mIU/mL Urine Color Dark Yellow Urine Appearance Turbid Urine pH 5.5 (5.0-9.0) Ur Specific [place] >= 1.030 H (1.005-1.025) Urine Protein 30 (1+) H (Neg-Trace) mg/dL Urine Glucose (UA) Negative (Negative) mg/dL Urine Ketones Trace (Negative) mg/dL Urine Blood Negative (Negative) Urine Nitrite Negative (Negative) Ur Leukocyte Esterase Negative (Negative) Urine RBC 0-2 (0-2) /HPF Urine WBC 0-5 (0-5) /HPF Ur Squamous Epith Cells >20 (0-2) /HPF Urine Bacteria 2+ (None Seen) Hyaline Casts 0-2 (0-2) /LPF Independent Interpretation I performed an independent interpretation of an: CT Scan Radiology Impression Discussion of test interpretation with radiology: I have reviewed the radiologist's reading. Radiologist Impression: FINDINGS: LUNG BASES: The visualized lung bases are unremarkable. LIVER, GALLBLADDER, AND BILIARY TREE: The liver is normal in size, shape, and attenuation. No focal hepatic lesion or biliary ductal dilatation is present. The gallbladder is surgically absent. PANCREAS: Unremarkable. SPLEEN: Unremarkable. ADRENAL GLANDS: Unremarkable. KIDNEYS AND URETERS: The kidneys are normal in size, shape, and attenuation. No hydronephrosis, hydroureter, or calculi seen. No perinephric stranding. BLADDER: Unremarkable. GASTROINTESTINAL TRACT: There is a small hiatus hernia. The small and large bowel are unremarkable. The appendix is unremarkable. ABDOMINAL WALL: There is a small to moderate fat-containing umbilical hernia. LYMPH NODES: Normal. VASCULAR: Unremarkable. PELVIC VISCERA: The uterus and adnexa are unremarkable. OSSEOUS STRUCTURES: There is multi-level thoracolumbar degenerative disc disease and spondylosis. No acute or aggressive osseous finding is noted. CT/CT abdomen pelvis wo IV con IMPRESSION: 1. No bowel obstruction, free intraperitoneal air or abscess is seen. There is no appendicitis or diverticulitis. 2. No urinary calculus or obstruction is seen. 3. There is no abdominopelvic mass, free fluid or lymphadenopathy. 4. There is a small hiatus hernia. 5. The gallbladder is surgically absent. 6. There are degenerative changes of the thoracolumbar spine. Fleischner guidelines were followed. Medications Administered Generic Name Dose Route Start Last Admin Trade Name Freq PRN Reason Stop Dose Admin Sodium Chloride 1,000 mls @ 999 mls/hr 05/29/23 02:00 05/29/23 01:58 Ns IV 05/29/23 03:00 999 mls/hr .[id number] LUISA Administration Discontinued Medications Generic Name Dose Route Start Last Admin Trade Name Freq PRN Reason Stop Dose Admin Acetaminophen 650 mg 05/29/23 00:03 05/29/23 00:05 Acetaminophen 325 Mg Tablet PO 05/29/23 00:04 650 mg ONCE ONE Administration Critical Care Time Critical Care Time Critical Care Time: Yes Total Critical Care Time: 60 Attestation: I have personally provided critical care time. Time includes review of lab data, radiology results, discussion with consultants, and monitoring for potential decompensation. Intervention performed as documented. Discharge Plan Discharge Clinical Impression: Abdominal pain Patient Disposition: Home, Self-Care Instructions: Abdominal Pain (ED) Additional Instructions: Please follow-up with your primary care physician tomorrow. If you have any worsening or new symptoms, please return to the emergency room or call 911 Prescriptions: New hyoscyamine sulfate 0.125 mg tablet 0.125 mg PO QID Qty: 10 0RF ondansetron 4 mg tablet,disintegrating 4 mg PO Q6H PRN (Reason: nausea and vomiting) Qty: 10 0RF No Action Care 40 mg iron-1 mg Tablet PO gabapentin 300 mg Tablet 300 mg PO TID
[2023-05-28 21:15] LABS: Basophils Percent Auto 0.3 % (0-2); Eosinophils Absolute Auto 0.1 X10*3/uL (0.0-0.4); Hematocrit 45.4 % (37.0-47.0); Hemoglobin 15.2 g/dl (12.0-16.0); Imm Gran Abs Auto 0.04 X10*3/uL (0.00-0.03); Imm Gran Pct Auto 0.3 % (0.0-0.4); Lymphocytes Absolute Auto 1.9 X10*3/uL (1.2-4.9); Lymphocytes Percent Auto 15.8 % (20-40); MANUAL DIFF FLAG NO; Mean Corpuscular HGB Conc 33.5 g/dl (31.0-35.0); Mean Corpuscular Hemoglobin 28.4 pg (27.0-33.0); Mean Corpuscular Volume 84.7 fL (80.0-98.0); Mean Platelet Volume 9.4 fL (9.4-12.3); Monocytes Percent Auto 8.6 % (2-11); Neutrophils Absolute Auto 8.8 x10*3/uL (2.0-8.3); Platelet Count 405 X10*3/uL (160-400); Red Blood Count 5.36 X10*6/uL (4.20-5.50); Red Cell Distribution Width 13.8 % (11.0-16.0); White Blood Count 11.8 X10*3/uL (4.8-10.8)
[2023-05-28 21:36] LABS: Alanine Aminotransferase 30 U/L (0-31); Albumin Level 4.5 g/dL (3.5-5.0); Alkaline Phosphatase 84 U/L (39-117); Anion Gap 15 (12-20); Aspartate Amino Transferase 20 U/L (5-31); Bilirubin Direct 0.4 mg/dL (0.0-0.5); Bilirubin Total 1.3 mg/dL (0.0-1.0); Blood Urea Nitrogen 4 mg/dL (9-16); Calcium 9.7 mg/dL (8.4-10.2); Carbon Dioxide 29 mmol/L (22-29); Chloride 101 mmol/L (96-108); Creatinine Clr Calc Pharmacy 108.2; Estimated Glomerular Filt Rate > 60; Glucose Random 111 mg/dL (60-115); Lipase 21 U/L (8-78); Potassium 3.4 mmol/L (3.3-5.1); Sodium 142 mmol/L (135-145)
[2023-05-28 21:38] LABS: HCG Quantitative < 2 mIU/mL
[2023-05-29] VITALS: BP 144/79; PULSE 101; RESP 20; TEMP 36.2; O2SAT 99
[2023-05-29] MEDS: Acetaminophen 325 MG TABLET 650 MG PO (00:05)
[2023-05-29 01:38] LABS: Appearance Urine Turbid; Color Urine Dark Yellow; Glucose Urine UA Negative (Negative); Leukocyte Esterase Urine Negative (Negative); Nitrite Urine Negative (Negative); PH 5.5 (5.0-9.0); Specific Gravity - Urine >= 1.030 (1.005-1.025); UMIC TRIGGER UACC YES; Urine Blood Negative (Negative); Urine Ketones Trace mg/dL (Negative); Urine Protein 30 (1+) mg/dL (Neg-Trace)
[2023-05-29] MEDS: 0.9 % Sodium Chloride 1,000 ML 999 ML IV (01:58)
[2023-05-29 02:10] LABS: Bacteria Urine 2+ (None Seen); Hyaline Casts Urine 0-2 /LPF (0-2); RBC Urine 0-2 /HPF (0-2); Squamous Epithelial Cell Urine >20 /HPF (0-2); WBC Urine 0-5 /HPF (0-5)
== END 2023-05-29 02:44 | disposition home or self-care (01) ==
PROVIDERS: Physician Assistant Medical; Emergency Provider Emergency Medicine; PCP Nurse Practitioner Primary Care
DX: R10.30 Lower abdominal pain, unspecified (principal); Z79.899 Other long term (current) drug therapy; F17.200 Nicotine dependence, unspecified, uncomplicated; Z71.6 Tobacco abuse counseling
CPT/HCPCS: 36415; 74176; 80048; 80076; 81001; 83690; 84702; 85025; 99284

== ENCOUNTER 2023-07-26 14:43 | Inpatient (IN) | payer MEDICAID, OTHER, SELFPAY ==
--- NOTE | ~2023-07-26 | US_ITS ---
EXAMINATION: US OBSTETRICAL ULTRASOUND CLINICAL INFORMATION: Abdominal pain. Positive hCG. COMPARISON: None available. LMP: Unknown. Gestational age by maternal dates is unknown. Estimated date of delivery by maternal dates is unknown. TECHNIQUE: Transabdominal and transvaginal imaging pelvis. FINDINGS: There is a single intrauterine gestational sac with visible yolk sac, question embryo/fetus. No activity seen... There is no significant subchorionic hemorrhage or hematoma. However there is several fibroids visualized. 1. Fibroid left mid uterus measures 1.7 x 1.6 x 1.6 cm. Previously measured 1.6 x 1.2 x 1.2 cm. 6 2. Fibroid in the left fundus measures 0.8 x 1.2 x 1.2 cm. Previously it measured 1.5 x 1.2 x 1.3 cm. heart rate not seen.. The gestational sac measures 0.63 x 1.36 x 0.6 on CM with a mean sac diameter of 0.94 cm corresponding to 5 weeks and 4 days. MATERNAL ADNEXA: The right maternal ovary measures 1.6 x 2.2 x 1.6. No focal lesion seen. The left maternal ovary measures 3.6 x 3.2 x 2.8 cm. There is a small corpus luteal cyst measuring 2.7 x 2.7 x 2.3 cm. There is no significant maternal adnexal mass. No maternal pelvic ascites. US/US OB pelvic and transvaginal IMPRESSION: 1. Single intrauterine gestation sac and likely pole. Mean gestational sac measurement of 0.94 cm corresponds to ultrasound gestational age of 5 weeks 4 days. There are at least 2 uterine fibroids visualized which are grossly stable.
--- NOTE | ~2023-07-26 | XR_ITS ---
EXAMINATION: XR CHEST CLINICAL INFORMATION: Cough. Body aches. COMPARISON: Chest radiograph 01/11/2022. CT abdomen and pelvis 05/28/2023. TECHNIQUE: 2 views of the chest were obtained. FINDINGS: Normal appearance of the cardiomediastinal structures. No effusions or pneumothoraces. Normal pattern of pulmonary vasculature. No focal pulmonary consolidation. Minimal multilevel anterior endplate osteophytosis of the thoracic spine. Upper abdominal surgical clips visualized in the lateral view consistent with cholecystectomy clips. XR/XR chest 2V IMPRESSION: *No cardiopulmonary abnormalities. Lungs clear. *Right upper quadrant cholecystectomy clips.
[2023-07-26 15:04] VITALS: BP 131/80; PULSE 114; RESP 19; TEMP 36.9; O2SAT 95; BMI 44.0
[2023-07-26 15:33] LABS: MANUAL DIFF FLAG NO
[2023-07-26 15:35] LABS: Basophils Percent Auto 0.3 % (0-2); Eosinophils Absolute Auto 0.3 X10*3/uL (0.0-0.4); Eosinophils Percent Auto 2.1 % (0-4); Hemoglobin 14.5 g/dl (12.0-16.0); Imm Gran Abs Auto 0.07 X10*3/uL (0.00-0.03); Imm Gran Pct Auto 0.5 % (0.0-0.4); Lymphocytes Absolute Auto 2.2 X10*3/uL (1.2-4.9); Lymphocytes Percent Auto 16.6 % (20-40); Mean Corpuscular HGB Conc 33.7 g/dl (31.0-35.0); Mean Corpuscular Hemoglobin 28.3 pg (27.0-33.0); Mean Corpuscular Volume 83.8 fL (80.0-98.0); Mean Platelet Volume 9.5 fL (9.4-12.3); Monocytes Absolute Auto 1.2 X10*3/uL (0.1-1.2); Monocytes Percent Auto 9.4 % (2-11); Neutrophils Absolute Auto 9.3 x10*3/uL (2.0-8.3); Neutrophils Percent Auto 71.1 % (45-73); Platelet Count 369 X10*3/uL (160-400); Red Blood Count 5.13 X10*6/uL (4.20-5.50); Red Cell Distribution Width 15.1 % (11.0-16.0); White Blood Count 13.1 X10*3/uL (4.8-10.8)
[2023-07-26 15:51] VITALS: BP 115/58; PULSE 93; RESP 18; TEMP 36.4; O2SAT 97
[2023-07-26 15:52] LABS: Acetaminophen LAB < 3 mcg/mL (<30); Alanine Aminotransferase 21 U/L (0-31); Albumin Level 4.1 g/dL (3.5-5.0); Alkaline Phosphatase 65 U/L (39-117); Anion Gap 15 (12-20); Aspartate Amino Transferase 17 U/L (5-31); Bilirubin Total 0.8 mg/dL (0.0-1.0); Blood Urea Nitrogen 4 mg/dL (9-16); Carbon Dioxide 21 mmol/L (22-29); Chloride 107 mmol/L (96-108); Creatinine Clr Calc Pharmacy 115.7; Estimated Glomerular Filt Rate > 60; Ethanol < 10 mg/dL; Glucose Random 119 mg/dL (60-115); Potassium 3.3 mmol/L (3.3-5.1); Salicylate < 5.0 mg/dL (15-30); Sodium 140 mmol/L (135-145); Total Protein 7.5 g/dL (6.5-8.0)
[2023-07-26 15:56] LABS: IDNOW Serial# 152EDE1D; Influenza A Negative (Negative); Influenza B2 Negative (Negative)
--- NOTE | 2023-07-26 16:00 | PC.NURSE ---
pt stated to this RN that she has thoughts of SI when pain in back increases. currently denies SI/HI at this time. pt states that she has a plan to kill herself w/ a gun but does not have a gun to follow through with. discharge planner made aware of pt's statements at this time. pt changed over into ligature [facility] attire. belongings obtained/placed in linen closet in pod. pt seemingly in no apparent distress at this time. respirations even and unlabored.
--- NOTE | 2023-07-26 16:02 | ED_ITS ---
HPI - General Adult General Chief complaint: Psychiatric Symptoms Stated complaint: SI, body pains Time Seen by Provider: 07/26/23 16:01 Source: patient and RN notes reviewed Mode of arrival: ambulatory Limitations: no limitations History of Present Illness HPI narrative: This is a 37-year-old female, with a history of asthma, anxiety, and depression, presenting to the emergency department with complaints of body aches, dry throat, fevers, diarrhea, nausea and vomiting and x1 week. Patient states that the onset of her symptoms has caused her to have intrusive thoughts of killing herself with a gun. She denies any auditory or visual hallucinations. No homicidal ideations. Patient states that over the last week her primary care physician was unable to fill her Haldol, but has been taking all of her other regular medications. She denies any chest pain or shortness of breath. She is unsure when her last menses was however reports irregular periods which is typical of her. No bloody or black stool. No other complaints or concerns at this time. MD complaint: Body aches, fever, diarrhea Onset (ago): day(s) Quality: aching Pain Consistency: constant Relieving factors: none Exacerbating factors: none Associated symptoms: cough, fever/chills and nausea/vomiting Treatments prior to arrival: none Related Data Home Medications Medication Instructions Recorded Confirmed gabapentin 300 mg tablet 300 mg PO TID 10/19/21 07/27/23 acetazolamide 500 mg 500 mg PO BID 07/27/23 07/27/23 capsule,extended release cetirizine 10 mg tablet 10 mg PO DAILY 07/27/23 07/27/23 haloperidol 5 mg tablet 5 mg PO BID 07/27/23 07/27/23 loratadine 10 mg tablet 10 mg PO DAILY 07/27/23 07/27/23 topiramate 100 mg tablet 100 mg PO BID 07/27/23 07/27/23 Previous Rx's Medication Instructions Recorded hyoscyamine sulfate 0.125 mg tablet 0.125 mg PO QID #10 tabs 05/29/23 ondansetron 4 mg disintegrating 4 mg PO Q6H PRN nausea and 05/29/23 tablet vomiting #10 tabs Allergies Allergy/AdvReac Type Severity Reaction Status Date / Time amoxicillin Allergy Unknown hives Verified 05/28/23 12:13 penicillin V Allergy Unknown RASH Verified 05/28/23 12:13 morphine AdvReac Unknown Verified 05/28/23 20:03 fish Allergy Unknown anaphylaxis Uncoded 01/11/22 17:02 NUTS Allergy Unknown anaphylaxis Uncoded 01/11/22 17:02 Review of Systems 2 Review of Systems: Yes all other systems are reviewed and are negative Constitutional: Constitutional: Reports as per [facility] Social History Social History Alcohol intake: never Patient Tobacco Use Status: Current everyday Tobacco user Smoked in Last 30 Days: Yes Use of substances other than those prescribed or required for medical reasons: Yes Substance Use Type: Marijuana Advance Directives: No Advance Directives Information Provided: No Patient : No Physical Exam ED Vital Signs: Vital Signs - 24 hr 07/26/23 15:04 07/26/23 15:51 07/26/23 18:14 Temperature 98.4 F 97.6 F 98.5 F Pulse Rate 114 H 93 86 Respiratory Rate 19 18 16 Blood Pressure 131/80 115/58 L 110/60 Pulse Oximetry 95 97 97 Oxygen Delivery Method Room Air Room Air Room Air 07/27/23 00:22 Temperature 97.0 F Pulse Rate 88 Respiratory Rate 14 Blood Pressure 114/57 L Pulse Oximetry 97 Oxygen Delivery Method Room Air BMI result Body Mass Index 44.0 Const General: cooperative, comfortable and no acute distress Orientation/consciousness: patient oriented x3 Limitations: no limitations HENMT Head: Yes normal to inspection, Yes normocephalic and Yes atraumatic Ears: hearing grossly normal bilaterally General nose exam: Normal external nose present Face and sinus: Yes normal facial exam Mouth: Normal oral and palatal mucosa present, oropharynx normal and moist mucous membranes Throat: Yes posterior oropharynx normal Eyes General: appearance normal, both eyes and all related structures Eyelids: Yes eyelids normal Conjunctivae: conjunctivae normal Sclerae: sclerae normal Pupils: Equal, round and reactive pupils present EOM: EOMs intact bilaterally Neck Neck: Yes normal visual inspection, Yes full ROM and Yes no lymphadenopathy Lymphatic: no lymphadenopathy noted Chest Chest palpation & inspection: normal inspection of the chest Resp Effort & Inspection: normal respiratory effort and able to speak in complete sentences Auscultation: clear to auscultation bilaterally, no crackles, no rales, no rhonchi and no wheezes Cardio Rate: regular rate Rhythm: regular rhythm Heart sounds: S1 normal heart sound present and S2 normal heart sound present GI Other: Abdomen is soft, nontender, nondistended, normoactive bowel sounds present in all 4 quadrants Inspection: Yes normal to inspection Skin General skin exam: no rashes or lesions noted Trauma: no lacerations or abrasions Wounds: no wounds Neuro General: patient oriented x3 and moves all extremities Cranial nerves: Yes Equal, round and reactive pupils present Extrem General: Yes normal to inspection Right upper extremity: normal to inspection Left upper extremity: normal to inspection Right lower extremity: normal to inspection Left lower extremity: normal to inspection Course Reevaluation(s) Reevaluation #1: beta quant [id number]. Given unknown , will obtain US. She is unsure when her last menses was. She is not having any abdominal pain, abnormal vaginal bleeding or discharge. Ultrasound revealing a single intrauterine gestation sac and likely pole. She has no vaginal bleeding at this time. Corresponds to a gestational age of 5 weeks and 4 days. There also uterine fibroids noted. Discussed findings with patient. Rh is positive, RhoGAM not indicated at this time. Urine does not appear to be infected. Patient is medically cleared at this time, will await care team consult. Time: 22:09 Medications Administered Discontinued Medications Generic Name Dose Route Start Last Admin Trade Name Freq PRN Reason Stop Dose Admin Acetaminophen 975 mg 07/26/23 16:14 07/26/23 16:48 Acetaminophen 325 Mg Tablet PO 07/26/23 16:15 975 mg ONCE ONE Administration Metoclopramide HCl 10 mg 07/26/23 22:24 07/26/23 22:33 Metoclopramide Hcl 10 Mg/2 Ml Vial IM 07/26/23 22:25 10 mg ONCE ONE Administration Medical Decision Making Medical Decision Making [facility] Narrative: This is a 37-year-old female presenting to the emergency department for evaluation of body aches, dry throat, nausea, vomiting, diarrhea, and suicidal ideation x1 week. On arrival, patient mildly tachycardic which has since improved since my evaluation 293. She is afebrile. She is speaking full sentences and appears to be under no acute distress. Lungs are clear to auscultation bilaterally. Abdomen is soft, nontender, nondistended. Differential diagnoses include influenza, COVID, bronchitis, pneumonia, viral syndrome, gastritis, electrolyte abnormality. Given that she currently has suicidal ideations, a sitter is present to monitor her due to flight risk. Plan: Labs, viral swabs, chest x-ray, UA Differential Diagnosis Differential Diagnoses: The differential diagnosis associated with the presentation includes See above Lab Data MDM Lab Attestation statement: I reviewed the patient's lab results. Slight leukocytosis at 13.1k, chemistry within normal limits, negative flu swab 07/26/23 15:23 07/26/23 15:23 Labs: Lab Results 07/26/23 07/26/23 07/26/23 Range/Units 15:23 16:19 21:22 WBC 13.1 H (4.8-10.8) X10*3/uL RBC 5.13 (4.20-5.50) X10*6/uL Hgb 14.5 (12.0-16.0) g/dl Hct 43.0 (37.0-47.0) % MCV 83.8 (80.0-98.0) fL MCH 28.3 (27.0-33.0) pg MCHC 33.7 (31.0-35.0) g/dl RDW 15.1 (11.0-16.0) % Plt Count 369 (160-400) X10*3/uL MPV 9.5 (9.4-12.3) fL Immature Gran % (Auto) 0.5 H (0.0-0.4) % Neut % (Auto) 71.1 (45-73) % Lymph % (Auto) 16.6 L (20-40) % [place] % (Auto) 9.4 (2-11) % Eos % (Auto) 2.1 (0-4) % Baso % (Auto) 0.3 (0-2) % Lymph # (Auto) 2.2 (1.2-4.9) X10*3/uL [place] # (Auto) 1.2 (0.1-1.2) X10*3/uL Eos # (Auto) 0.3 (0.0-0.4) X10*3/uL Baso # (Auto) 0.0 (0.0-0.2) X10*3/uL Abs Immat Gran (auto) 0.07 H (0.00-0.03) X10*3/uL Absolute Neuts (auto) 9.3 H (2.0-8.3) x10*3/uL Absolute Nucleated RBC 0.000 (0.0-0.012) X10*3/uL Nucleated RBC % (auto) 0.0 (0.0-0.2) /100WBC Sodium 140 (135-145) mmol/L Potassium 3.3 (3.3-5.1) mmol/L Chloride 107 (96-108) mmol/L Carbon Dioxide 21 L (22-29) mmol/L Anion Gap 15 (12-20) BUN 4 L (9-16) mg/dL Creatinine 0.79 (0.5-1.4) mg/dL Estim Creat Clear Calc 115.7 Estimated GFR > 60 Random Glucose 119 H (60-115) mg/dL Calcium 9.0 D (8.4-10.2) mg/dL Total Bilirubin 0.8 (0.0-1.0) mg/dL AST 17 (5-31) U/L ALT 21 (0-31) U/L Alkaline Phosphatase 65 (39-117) U/L Total Protein 7.5 (6.5-8.0) g/dL Albumin 4.1 (3.5-5.0) g/dL Beta HCG, Quant 7770 mIU/mL Urine Color Urine Appearance Urine pH (5.0-9.0) Ur Specific [place] (1.005-1.025) Urine Protein (Neg-Trace) mg/dL Urine Glucose (UA) (Negative) mg/dL Urine Ketones (Negative) mg/dL Urine Blood (Negative) Urine Nitrite (Negative) Ur Leukocyte Esterase (Negative) Urine RBC (0-2) /HPF Urine WBC (0-5) /HPF Ur Squamous Epith Cells (0-2) /HPF Urine Bacteria (None Seen) Hyaline Casts (0-2) /LPF Urine Test (NEGATIVE) Salicylates < 5.0 L (15-30) mg/dL Urine Opiates Screen Not Detected (Not Detect) Urine Fentanyl Screen Not Detected (Not Detect) Acetaminophen < 3 (<30) mcg/mL Ur Barbiturates Screen Not Detected (Not Detect) Ur Phencyclidine Scrn Not Detected (Not Detect) Ur Amphetamines Screen Not Detected (Not Detect) U Benzodiazepines Scrn Not Detected (Not Detect) Urine Cocaine Screen Not Detected (Not Detect) U Marijuana (THC) Screen POSITIVE H (Not Detect) Ethyl Alcohol < 10 mg/dL COVID-19 (PATRICIA) Invalid Invalid (Negative) COVID-19 Clin Com See Note See Note Influenza Type A (SRINATH) Negative (Negative) Influenza Type B (SRINATH) Negative (Negative) Influenza A & B Note See Note Blood Type A Positive 07/26/23 Range/Units 21:29 WBC (4.8-10.8) X10*3/uL RBC (4.20-5.50) X10*6/uL Hgb (12.0-16.0) g/dl Hct (37.0-47.0) % MCV (80.0-98.0) fL MCH (27.0-33.0) pg MCHC (31.0-35.0) g/dl RDW (11.0-16.0) % Plt Count (160-400) X10*3/uL MPV (9.4-12.3) fL Immature Gran % (Auto) (0.0-0.4) % Neut % (Auto) (45-73) % Lymph % (Auto) (20-40) % [place] % (Auto) (2-11) % Eos % (Auto) (0-4) % Baso % (Auto) (0-2) % Lymph # (Auto) (1.2-4.9) X10*3/uL [place] # (Auto) (0.1-1.2) X10*3/uL Eos # (Auto) (0.0-0.4) X10*3/uL Baso # (Auto) (0.0-0.2) X10*3/uL Abs Immat Gran (auto) (0.00-0.03) X10*3/uL Absolute Neuts (auto) (2.0-8.3) x10*3/uL Absolute Nucleated RBC (0.0-0.012) X10*3/uL Nucleated RBC % (auto) (0.0-0.2) /100WBC Sodium (135-145) mmol/L Potassium (3.3-5.1) mmol/L Chloride (96-108) mmol/L Carbon Dioxide (22-29) mmol/L Anion Gap (12-20) BUN (9-16) mg/dL Creatinine (0.5-1.4) mg/dL Estim Creat Clear Calc Estimated GFR Random Glucose (60-115) mg/dL Calcium (8.4-10.2) mg/dL Total Bilirubin (0.0-1.0) mg/dL AST (5-31) U/L ALT (0-31) U/L Alkaline Phosphatase (39-117) U/L Total Protein (6.5-8.0) g/dL Albumin (3.5-5.0) g/dL Beta HCG, Quant mIU/mL Urine Color Yellow Urine Appearance Clear Urine pH 7.5 (5.0-9.0) Ur Specific [place] 1.010 (1.005-1.025) Urine Protein Negative (Neg-Trace) mg/dL Urine Glucose (UA) Negative (Negative) mg/dL Urine Ketones Negative (Negative) mg/dL Urine Blood Negative (Negative) Urine Nitrite Negative (Negative) Ur Leukocyte Esterase Trace H (Negative) Urine RBC 0-2 (0-2) /HPF Urine WBC 0-5 (0-5) /HPF Ur Squamous Epith Cells 3-5 (0-2) /HPF Urine Bacteria None Seen (None Seen) Hyaline Casts 0-2 (0-2) /LPF Urine Test POSITIVE H (NEGATIVE) Salicylates (15-30) mg/dL Urine Opiates Screen (Not Detect) Urine Fentanyl Screen (Not Detect) Acetaminophen (<30) mcg/mL Ur Barbiturates Screen (Not Detect) Ur Phencyclidine Scrn (Not Detect) Ur Amphetamines Screen (Not Detect) U Benzodiazepines Scrn (Not Detect) Urine Cocaine Screen (Not Detect) U Marijuana (THC) Screen (Not Detect) Ethyl Alcohol mg/dL COVID-19 (PATRICIA) (Negative) COVID-19 Clin Com Influenza Type A (SRINATH) (Negative) Influenza Type B (SRINATH) (Negative) Influenza A & B Note Blood Type Independent Interpretation I performed an independent interpretation of an: Ultrasound Interpretation: EXAMINATION: US OBSTETRICAL ULTRASOUND CLINICAL INFORMATION: Abdominal pain. Positive hCG. COMPARISON: None available. LMP: Unknown. Gestational age by maternal dates is unknown. Estimated date of delivery by maternal dates is unknown. TECHNIQUE: Transabdominal and transvaginal imaging pelvis. FINDINGS: There is a single intrauterine gestational sac with visible yolk sac, question embryo/fetus. No activity seen... There is no significant subchorionic hemorrhage or hematoma. However there is several fibroids visualized. 1. Fibroid left mid uterus measures 1.7 x 1.6 x 1.6 cm. Previously measured 1.6 x 1.2 x 1.2 cm. 6 2. Fibroid in the left fundus measures 0.8 x 1.2 x 1.2 cm. Previously it measured 1.5 x 1.2 x 1.3 cm. heart rate not seen.. The gestational sac measures 0.63 x 1.36 x 0.6 on CM with a mean sac diameter of 0.94 cm corresponding to 5 weeks and 4 days. MATERNAL ADNEXA: The right maternal ovary measures 1.6 x 2.2 x 1.6. No focal lesion seen. The left maternal ovary measures 3.6 x 3.2 x 2.8 cm. There is a small corpus luteal cyst measuring 2.7 x 2.7 x 2.3 cm. There is no significant maternal adnexal mass. No maternal pelvic ascites. US/US OB pelvic and transvaginal IMPRESSION: 1. Single intrauterine gestation sac and likely pole. Mean gestational sac measurement of 0.94 cm corresponds to ultrasound gestational age of 5 weeks 4 days. There are at least 2 uterine fibroids visualized which are grossly stable. Dictated By: Dheeraj Garner MD Radiology Impression Discussion of test interpretation with radiology: I have reviewed the radiologist's reading. Radiologist Impression: EXAMINATION: US OBSTETRICAL ULTRASOUND CLINICAL INFORMATION: Abdominal pain. Positive hCG. COMPARISON: None available. LMP: Unknown. Gestational age by maternal dates is unknown. Estimated date of delivery by maternal dates is unknown. TECHNIQUE: Transabdominal and transvaginal imaging pelvis. FINDINGS: There is a single intrauterine gestational sac with visible yolk sac, question embryo/fetus. No activity seen... There is no significant subchorionic hemorrhage or hematoma. However there is several fibroids visualized. 1. Fibroid left mid uterus measures 1.7 x 1.6 x 1.6 cm. Previously measured 1.6 x 1.2 x 1.2 cm. 6 2. Fibroid in the left fundus measures 0.8 x 1.2 x 1.2 cm. Previously it measured 1.5 x 1.2 x 1.3 cm. heart rate not seen.. The gestational sac measures 0.63 x 1.36 x 0.6 on CM with a mean sac diameter of 0.94 cm corresponding to 5 weeks and 4 days. MATERNAL ADNEXA: The right maternal ovary measures 1.6 x 2.2 x 1.6. No focal lesion seen. The left maternal ovary measures 3.6 x 3.2 x 2.8 cm. There is a small corpus luteal cyst measuring 2.7 x 2.7 x 2.3 cm. There is no significant maternal adnexal mass. No maternal pelvic ascites. US/US OB pelvic and transvaginal IMPRESSION: 1. Single intrauterine gestation sac and likely pole. Mean gestational sac measurement of 0.94 cm corresponds to ultrasound gestational age of 5 weeks 4 days. There are at least 2 uterine fibroids visualized which are grossly stable. Dictated By: Dheeraj Garner MD Signed By: <Electronically sign EXAMINATION: XR CHEST CLINICAL INFORMATION: Cough. Body aches. COMPARISON: Chest radiograph 01/11/2022. CT abdomen and pelvis 05/28/2023. TECHNIQUE: 2 views of the chest were obtained. FINDINGS: Normal appearance of the cardiomediastinal structures. No effusions or pneumothoraces. Normal pattern of pulmonary vasculature. No focal pulmonary consolidation. Minimal multilevel anterior endplate osteophytosis of the thoracic spine. Upper abdominal surgical clips visualized in the lateral view consistent with cholecystectomy clips. XR/XR chest 2V IMPRESSION: *No cardiopulmonary abnormalities. Lungs clear. *Right upper quadrant cholecystectomy clips. Dictated By: Pedro Cummins MD Chronic Conditions Patient?s care impacted by: Other Discharge Plan Discharge Clinical Impression: Suicidal ideation, Patient Disposition: Home, Self-Care Prescriptions: No Action gabapentin 300 mg Tablet 300 mg PO TID hyoscyamine sulfate 0.125 mg tablet 0.125 mg PO QID Qty: 10 0RF ondansetron 4 mg tablet,disintegrating 4 mg PO Q6H PRN (Reason: nausea and vomiting) Qty: 10 0RF haloperidol 5 mg tablet 5 mg PO BID cetirizine 10 mg tablet 10 mg PO DAILY acetazolamide 500 mg capsule, extended release 500 mg PO BID topiramate 100 mg tablet 100 mg PO BID loratadine 10 mg tablet 10 mg PO DAILY Interventions: [place]-Suicide Risk Severity Scale Last Done: 07/26/23 15:52
[2023-07-26 16:11] LABS: COVID-19 Test Invalid (Negative); IDNOW Serial# 08D9AD1C
[2023-07-26 16:38] LABS: Amphetamine Screen Urine Not Detected (Not Detect); Barbiturates, Urine Not Detected (Not Detect); Benzodiazepines Screen Urine Not Detected (Not Detect); Cannabinoid Screen Urine POSITIVE (Not Detect); Cocaine Screen Urine Not Detected (Not Detect); Fentanyl, urine Not Detected (Not Detect); Opiate Screen Urine Not Detected (Not Detect); Phencyclidine Screen Urine Not Detected (Not Detect)
[2023-07-26 16:46] LABS: COVID-19 Test Invalid (Negative); IDNOW Serial# 6674DD1D
[2023-07-26] MEDS: Acetaminophen 325 MG TABLET 975 MG PO (16:48)
--- NOTE | 2023-07-26 16:49 | PC.NURSE ---
medication administered per provider order. pt going to xray at this time.
[2023-07-26 16:58] LABS: HCG Quantitative 7770 mIU/mL
[2023-07-26 18:14] VITALS: BP 110/60; PULSE 86; RESP 16; TEMP 36.9; O2SAT 97
--- NOTE | 2023-07-26 20:20 | PC.NURSE ---
this rn assumed care of pt @ 1900 pt being brought to [facility] emergency department at that time. per previous shift nurse pt denying SI at this time. once pt returned from ultrasound this rn assessed pt for SI @ 2014. pt states is SI this rn made discharge rn aware. sitter in place pt provided with sandwich and zana meena
[2023-07-26 21:43] LABS: UPreg QC Valid YES; Urine Pregnancy POSITIVE (NEGATIVE)
[2023-07-26 21:45] LABS: Appearance Urine Clear; Color Urine Yellow; Glucose Urine UA Negative (Negative); Leukocyte Esterase Urine Trace (Negative); Nitrite Urine Negative (Negative); PH 7.5 (5.0-9.0); UMIC TRIGGER UA YES; Urine Blood Negative (Negative); Urine Ketones Negative (Negative); Urine Protein Negative (Neg-Trace)
[2023-07-26 21:51] LABS: Bacteria Urine None Seen (None Seen); Hyaline Casts Urine 0-2 /LPF (0-2); RBC Urine 0-2 /HPF (0-2); WBC Urine 0-5 /HPF (0-5)
[2023-07-26] MEDS: Metoclopramide HCl 10 MG/2 ML VIAL IM (22:33)
--- NOTE | 2023-07-26 22:35 | PC.NURSE ---
pt had episode of vomiting states to this rn i have been having post nasal drip for days and it makes me throw up dr mckinley placed order for IM reglan pt medicated according to ric
[2023-07-27 00:22] VITALS: BP 114/57; PULSE 88; RESP 14; TEMP 36.1; O2SAT 97
--- NOTE | 2023-07-27 00:51 | PC.NURSE ---
Med req completed
[2023-07-27] MEDS: diphenhydrAMINE HCL 25 MG CAPSULE 50 MG PO (03:39)
--- NOTE | 2023-07-27 03:45 | PC.NURSE ---
pt noted to be sleeping, when rn walked past pt pt sat up in bed demanding home medications and medication to help sleep. this rn discussed with dr mckinley per dr mckinley medication not continued until pharmacy can verify safety with order placed by md for po bendryl this rn explained situation to pt, pt agreeable to plan- pt medicated according to mar pt repositioned self on L side sitter remains in place
--- NOTE | 2023-07-27 08:33 | PC.NURSE ---
Assumed care of pt from previous RN, pt resting comfortably on stretcher. Respirations equal/unlabored. Awaiting inpatient bed placement.
[2023-07-27] MEDS: Acetaminophen 325 MG TABLET 650 MG PO ×2 (10:18→18:44)
--- NOTE | 2023-07-27 10:25 | PC.NURSE ---
Pt medicated with tylenol per request for headache. COVID swab obtained again.
[2023-07-27 10:37] LABS: COVID-19 Test Negative (Negative); IDNOW Serial# 152EDE1D
--- NOTE | 2023-07-27 12:10 | MHC.CARE ---
RAD Team conducted statewide bed[place] for pt, unfortunately there are no beds statewide. RAD Team will continue bedsearch tomorrow (07/28) if deemed appropriate
--- NOTE | 2023-07-27 12:27 | PC.NURSE ---
Care team provider at bedside to speak to pt.
[2023-07-27 15:54] VITALS: BP 114/70; PULSE 83; RESP 13; TEMP 36.4; O2SAT 96
--- NOTE | 2023-07-27 16:07 | PHA.MEDREC ---
Pharmacy Consult ? Medication Reconciliation Pharmacy has reviewed the medication reconciliation completed by Hellen. Valacyclovir and Omeprazole were originally missed from the list. Patient is adamant she still take gabapentin and haldol. Per PDMP, gabapentin last filled in March. Prema Main, PharmD
--- NOTE | 2023-07-27 17:06 | PC.NURSE ---
Pt transferred to pod, now ambulating with steady gait around ED pod. Pt did have two episode of vomiting, MD aware of need for anti-emetic, no new order at this time. Pt offers no complaints to this RN, respirations even and unlabored, skin pwd, alert and oriented x4. Pt endorses SI with no plan at this time
[2023-07-27] MEDS: Ondansetron ODT 4 MG TAB.RAPDIS TRANSLINGU (17:30)
[2023-07-27] MEDS: valACYclovir HCL 1,000 MG TABLET 1000 MG PO (18:44)
[2023-07-27] MEDS: Omeprazole 20 MG CAPSULE.DR PO (18:44)
[2023-07-27] MEDS: Topiramate 100 MG TABLET PO (20:12)
[2023-07-27] MEDS: HaloperidoL 5 MG TABLET PO (20:12)
[2023-07-27] MEDS: Gabapentin 300 MG CAPSULE PO (20:12)
[2023-07-27 23:40] VITALS: BP 94/44; PULSE 77; TEMP 36.5; O2SAT 99
[2023-07-28] MEDS: Omeprazole 20 MG CAPSULE.DR PO (08:28)
[2023-07-28] MEDS: HaloperidoL 5 MG TABLET PO ×2 (08:28→19:58)
[2023-07-28] MEDS: Gabapentin 300 MG CAPSULE PO ×3 (08:28→19:58)
[2023-07-28] MEDS: Topiramate 100 MG TABLET PO ×2 (08:36→19:58)
[2023-07-28] MEDS: valACYclovir HCL 1,000 MG TABLET 1000 MG PO (08:36)
[2023-07-28 09:02] VITALS: BP 135/82; PULSE 102; RESP 15; TEMP 36.8; O2SAT 96
[2023-07-28] MEDS: Acetaminophen 325 MG TABLET 650 MG PO (12:03)
[2023-07-28 14:00] VITALS: RESP 16
--- NOTE | 2023-07-28 14:44 | MHC.CARE ---
RAD Team conducted statewide bedsearch for pt, unfortunately there are no beds statewide due to barrier of being . RAD Team will continue bedsearch tomorrow (07/29) if deemed appropriate
--- NOTE | 2023-07-28 19:07 | PC.NURSE ---
patient appears to remain at rest at present respirations are even and unlabored patient appears in no distress
[2023-07-28 19:32] VITALS: BP 107/49; PULSE 80; RESP 18; TEMP 36.6; O2SAT 96
[2023-07-29 04:09] VITALS: BP 111/55; PULSE 65; RESP 17; TEMP 36.7; O2SAT 96
[2023-07-29] MEDS: Omeprazole 20 MG CAPSULE.DR PO (08:34)
[2023-07-29] MEDS: HaloperidoL 5 MG TABLET PO ×2 (08:34→21:44)
[2023-07-29] MEDS: Gabapentin 300 MG CAPSULE PO ×3 (08:34→21:44)
[2023-07-29] MEDS: valACYclovir HCL 1,000 MG TABLET 1000 MG PO (08:48)
[2023-07-29] MEDS: Topiramate 100 MG TABLET PO (08:48)
--- NOTE | 2023-07-29 08:57 | PC.NURSE ---
patient has been sleeping off and on throught out the morning, medicated per aug, patient respirations equal and unlabored, skin PWD. patient has been calm and cooperative, able to make needs known
[2023-07-29 09:22] VITALS: BP 106/55; PULSE 84; RESP 14; TEMP 37.4; O2SAT 94
--- NOTE | 2023-07-29 10:25 | PC.NURSE ---
patient ate her breakfast this morning, requesting to shower, patient given new hospital attire, socks and set up for shower.
--- NOTE | 2023-07-29 13:49 | P.CNPS_ITS ---
History of Present Illness Date of Service: 07/29/2023 Chief Complaint: Depression/SI Reason for Consult: SI Discussed with referring provider: Yes Sources of Information: patient interviewed, chart reviewed and crisis/core team assessment reviewed HPI Narrative: Ms. Fraga is 37 year-old with unclear psych hx. She self presented reporting suicidal ideation in the context of having bone pain. Pt reports she was having overall bone pain worse at night that was making her have suicidal thoughts. She learned while in the ED that she is . Pt initially had reported that she thought her water was poisoned and this being the reason of her having bone pain. She has not seen her psychiatric prescribers since September of 2022 but reports she used to be on haldol for depression. Pt has been seen few other occasion in the ED, once when reporting having a seizure while fully alert, and oriented. Somewhat suspicious and then asking to be discharged. Pt seen today. She is sitting in her bed. She reports she was having intrusive thoughts and suicidal ideation but now feeling a little bit better. When asked what she thinks has help, she reports being here and probably restarted on haldol. Although she denies hx of VH/AH, I do suspect she may have hx of. She reports she may have an as her other 3 children were taken from her costudy by [facility]. She reports the father of this baby not aware. In terms of living situation, pt reports she has been staying with a friend and her children. Diagnostics Vital Signs (24Hr): Vital Signs - 24 hr 07/28/23 14:00 07/28/23 19:32 07/29/23 04:09 Temperature 98 F 98.1 F Pulse Rate 80 65 Respiratory Rate 16 18 17 Blood Pressure 107/49 L 111/55 L Pulse Oximetry 96 96 Oxygen Delivery Method Room Air Room Air 07/29/23 09:22 Temperature 99.4 F Pulse Rate 84 Respiratory Rate 14 Blood Pressure 106/55 L Pulse Oximetry 94 Oxygen Delivery Method Room Air BMI result Body Mass Index 44.0 Labs 07/26/23 15:23 07/26/23 15:23 Imaging Radiology Impressions: ITS Impressions Chest X-Ray 07/26/23 16:55 IMPRESSION: *No cardiopulmonary abnormalities. Lungs clear. *Right upper quadrant cholecystectomy clips. Pelvic/Transvag US 07/26/23 19:40 IMPRESSION: 1. Single intrauterine gestation sac and likely pole. Mean gestational sac measurement of 0.94 cm corresponds to ultrasound gestational age of 5 weeks 4 days. There are at least 2 uterine fibroids visualized which are grossly stable. Mental Status Exam Mental Status Exam Narrative: Appearance: wearing hospital gown, fair hygiene, NAD Behavior: superfically cooperative Psychomotor: no agitation or retardation noted Speech: clear, normal rate/rhythm/volume, spontaneous TP: mostly linear TC: feeling better, SI: denies HI: denies Insight/judgment: poor x 2. Memory/cog: alert, oriented x 3. Medications Medications Current Medications Gabapentin (Gabapentin 300 Mg Capsule) 300 mg PO TID [facility] Last Admin: 07/29/23 08:34 Dose: 300 mg Haloperidol (Haloperidol 5 Mg Tablet) 5 mg PO BID [facility] Last Admin: 07/29/23 08:34 Dose: 5 mg Omeprazole (Omeprazole 20 Mg Capsule.Dr) 20 mg PO DAILY [facility] Last Admin: 07/29/23 08:34 Dose: 20 mg Ondansetron HCl (Ondansetron Odt 4 Mg Tab.Rapdis) 4 mg TRANSLINGU Q6H PRN PRN Reason: nausea and vomiting Last Admin: 07/27/23 17:30 Dose: 4 mg Valacyclovir HCl (Valacyclovir Hcl 1,000 Mg Tablet) 1,000 mg PO DAILY [facility] Last Admin: 07/29/23 08:48 Dose: 1,000 mg Allergies Allergies Allergy/AdvReac Type Severity Reaction Status Date / Time amoxicillin Allergy Unknown hives Verified 05/28/23 12:13 penicillin V Allergy Unknown RASH Verified 05/28/23 12:13 morphine AdvReac Unknown Verified 05/28/23 20:03 fish Allergy Unknown anaphylaxis Uncoded 01/11/22 17:02 NUTS Allergy Unknown anaphylaxis Uncoded 01/11/22 17:02 Assessment & Plan Assessment & Plan (1) Psychotic disorder: Status: Acute Code(s): F29 - Unspecified psychosis not due to a substance or known physiological condition Plan I suspect her primary dx is a psychotic disorder. Limited collateral information available at this time. 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 we discussed teratogenic effects of topamax. pt agrees to stop but also states that she plans to terminate .. there is information on the record to suspect that seizure may be somatic delusion as she has presented in the past in the ED completely alert stating she was having a seizure. She also though that she was having pain because her water was poisoned. Suspect underlying more complex delusional system affecting her mood. PLAN 1. obtain collateral information 2. continue haldol 5mg po BID Total time managing care of this patient today ____ minutes.
[2023-07-29 16:36] VITALS: BP 127/61; PULSE 95; RESP 15; TEMP 36.4; O2SAT 97
[2023-07-29 16:37] VITALS: BMI 44.2
[2023-07-29] MEDS: Acetaminophen 325 MG TABLET 650 MG PO (17:42)
[2023-07-29] MEDS: Folic Acid 1 MG TABLET PO (17:46)
--- NOTE | 2023-07-29 18:10 | PC.ADMIT ---
Pt entered the unit, via w/c, and came from [facility] ED d/t SI. Skin check completed and all skin in tact. VSS. Pt stated that several days ago, for a couple of days, I felt suicidal. Pt states that she was thinking about either using a gun or taking pills, however, she doesn't have access to a gun , so she changed her mind and was only thinking about overdosing on pills . Pt stated that the precipitating event of becoming suicidal, was being in a lot of physical pain. She states that she had been following up with a doctor, however, they didn't properly diagnose her. When pt decided to come to [facility] ED, she learned that she is now 6 weeks , which helped to explain her symptoms that she had been experiencing. Pt states that she has three children: 14, 13, and 1. She currently doesn't live with any of them, and the 1 year old is in the foster care system. She does have joint custody of the two older one's, however, they reside with their father. Pt states that she pays rent to her friend, and sleeps on the couch in that home. Pt states that she is considering an with this . Pt is calm, cooperative, pleasant. She signed a 3 day notice during the admission process. She makes good eye contact and has normal volume and tone to her voice. Pt denies any SI thoughts at this time, and stated that she will come to staff if she has SI thoughts while in [facility].
[2023-07-29 21:40] VITALS: BP 125/71; PULSE 98; TEMP 36.5
[2023-07-29] MEDS: traZODone HCL 50 MG TABLET PO (21:44)
[2023-07-30 08:45] VITALS: BP 107/59; PULSE 114; RESP 16; TEMP 36.8; O2SAT 96
[2023-07-30] MEDS: valACYclovir HCL 1,000 MG TABLET 1000 MG PO (09:30)
[2023-07-30] MEDS: Omeprazole 20 MG CAPSULE.DR PO (09:30)
[2023-07-30] MEDS: Gabapentin 300 MG CAPSULE PO ×3 (09:30→20:46)
[2023-07-30] MEDS: Folic Acid 1 MG TABLET PO (09:30)
[2023-07-30] MEDS: HaloperidoL 5 MG TABLET PO ×2 (09:30→20:47)
[2023-07-30 09:38] LABS: Estimated Average Glucose 105 mg/dL; Hemoglobin A1c % 5.3 % (<6.0)
[2023-07-30 09:46] LABS: Cholesterol 155 mg/dL (<200); HDL Cholesterol 46 mg/dL (>40); LDL Cholesterol Calculated 92 mg/dL (<100); Triglycerides 85 mg/dL (<150)
[2023-07-30] MEDS: Acetaminophen 325 MG TABLET 650 MG PO ×2 (10:28→16:35)
--- NOTE | 2023-07-30 11:40 | HE.PHANOTE ---
RE: topiramate Messaged Celie regarding risk with topiramate usage and she communicated to me to continue due to seizure activity until she sees neuro and OB. Patient considering termination.
--- NOTE | 2023-07-30 16:09 | PM.NEUROCN ---
History of Present Illness Data of Consult Service Date: 07/30/23 Primary Care Provider: Mary Ann Ward NP [facility] Reason for consult: Seizure disorder 37 years old woman with previous diagnosis of bipolar disorder had been taking antipsychotics and lithium, chronic migraine type headaches since she was a teenager, and seizure-like spells that were found to be nonepileptic in nature with long-term EEG monitoring during which she had multiple episodes. Presently, she was on psychiatric floor for worsening of her psychiatric symptoms but was noted to be for few weeks. Staff told me that she was not happy to see anyone and not cooperative. I was able to briefly talk to her and she right away stated that she wanted her Topamax back stating that it was helping her and she wanted to take it again. She said that she was having headaches 2 to 3 times a week and each time it was lasting for few hours at a time. Review of Systems Review of Systems: No recent head trauma or cold or flu-like illness PMFSH Social History Social History Household Members: Family Housing: House Do you presently have visiting nurse or other home services: No Alcohol intake: never Patient Tobacco Use Status: Current everyday Tobacco user Tobacco use type: Cigarette Cigarettes Per Day: 4 Years Smoked: 10 Second Hand Smoke Exposure: Yes Substance Use Type: Marijuana Meds Allergies Allergy/AdvReac Type Severity Reaction Status Date / Time amoxicillin Allergy Unknown hives Verified 05/28/23 12:13 penicillin V Allergy Unknown RASH Verified 05/28/23 12:13 morphine AdvReac Unknown Verified 05/28/23 20:03 fish Allergy Unknown anaphylaxis Uncoded 01/11/22 17:02 NUTS Allergy Unknown anaphylaxis Uncoded 01/11/22 17:02 Active Medications: Current Medications Acetaminophen (Acetaminophen 325 Mg Tablet) 650 mg PO Q6H PRN PRN Reason: Headache/Pain Mild Scale (1-3) Last Admin: 07/30/23 10:28 Dose: 650 mg Folic Acid (Folic Acid 1 Mg Tablet) 1 mg PO DAILY [facility] Last Admin: 07/30/23 09:30 Dose: 1 mg Gabapentin (Gabapentin 300 Mg Capsule) 300 mg PO TID [facility] Last Admin: 07/30/23 15:03 Dose: 300 mg Haloperidol (Haloperidol 5 Mg Tablet) 5 mg PO BID [facility] Last Admin: 07/30/23 09:30 Dose: 5 mg Omeprazole (Omeprazole 20 Mg Capsule.Dr) 20 mg PO DAILY [facility] Last Admin: 07/30/23 09:30 Dose: 20 mg Ondansetron HCl (Ondansetron Odt 4 Mg Tab.Rapdis) 4 mg TRANSLINGU Q6H PRN PRN Reason: nausea and vomiting Last Admin: 07/27/23 17:30 Dose: 4 mg Topiramate (Topiramate 100 Mg Tablet) 100 mg PO BID [facility] Trazodone HCl (Trazodone Hcl 50 Mg Tablet) 50 mg PO BEDTIME MRX1 PRN PRN Reason: Insomnia Last Admin: 07/29/23 21:44 Dose: 50 mg Valacyclovir HCl (Valacyclovir Hcl 1,000 Mg Tablet) 1,000 mg PO DAILY [facility] Last Admin: 07/30/23 09:30 Dose: 1,000 mg Home Medications Medication Instructions Recorded Confirmed Last Taken Type gabapentin 300 mg tablet 300 mg PO TID 10/19/21 07/27/23 Unknown History acetazolamide 500 mg 500 mg PO BID 07/27/23 07/27/23 Unknown History capsule,extended release cetirizine 10 mg tablet 10 mg PO DAILY 07/27/23 07/27/23 Unknown History haloperidol 5 mg tablet 5 mg PO BID 07/27/23 07/27/23 Unknown History loratadine 10 mg tablet 10 mg PO DAILY 07/27/23 07/27/23 Unknown History omeprazole 20 mg capsule,delayed 20 mg PO DAILY 07/27/23 07/27/23 Unknown History release topiramate 100 mg tablet 100 mg PO BID 07/27/23 07/27/23 Unknown History valacyclovir 1 gram tablet 1,000 mg PO DAILY 07/27/23 07/27/23 Unknown History Physical Exam Vital Signs: Vital Signs: Last Vital Signs Temp 98.2 F 07/30/23 08:45 Pulse 114 H 07/30/23 08:45 Resp 16 07/30/23 08:45 BP 107/59 L 07/30/23 08:45 Pulse Ox 96 07/30/23 08:45 O2 Del Method Room Air 07/30/23 08:45 BMI result Body Mass Index 44.2 Neuro: Other: Elementary neurological examination is limited. She is alert and awake with normal spontaneity of speech fluency comprehension and reasonably normal affect. Face is symmetrical. Visual yusuf are full. She has a sheet over her body and was not willing to take it off. Results Labs 07/26/23 15:23 07/26/23 15:23 Assessment and Plan (1) Chronic migraine without aura, intractable, without status migrainosus: Status: Acute 37 years old woman with chronic migraine type headaches and seizure-like episodes with negative EEGs treated with topiramate. She said that it was helping and she wanted to continue it. Talking about , she said that she was definitely going to terminated. Typically this medicine is not advised to be taken during . On the other hand, if the plan for termination was final, it might be reasonable to continue. If that plan was final, I would suggest counseling the patient and suggesting tubal ligation as with her underlying psychiatric disease, she may not be able to take care of the child. At least that option should be discuss with her, or any of her guardian if there is 1. As far as seizure disorder is concerned, no further testing is needed. (2) Nonepileptic attack disorder: Status: Acute Procedures Date of Service Date of Service: 07/30/23
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
[2023-07-30 18:00] VITALS: BP 110/70; PULSE 94; TEMP 36.3
--- NOTE | 2023-07-30 18:28 | P.EN_ITS ---
Event Note Date of Service: 07/30/23 Event Note: Medical consult for pt who is 5 weeks and currently on acetazolamide. Patient states she is currently taking acetazolamide for pseudotumor and resultant seizure like activity. Also reports a history of glaucoma, but not on any medication for it. Patient's seizures appear to be relatively well- controlled with last seizure 2-3 months ago. Patient also states she does not plan to carry her to term. Patient had complicated in 2021 with prolonged abnormal uterine bleeding and reports she does not want to go through that process again. Patient has also seen Neurology about Topamax which is another medication not typically advised to be taken during . Will defer to specialists concerning this consultation. Would suggest consulting education and training coordinator for further recommendations of managing pt's medications while . If there is concern for glaucoma and possible treatment, she will need to follow-up outpatient with optometry. Thank you for allowing us to participate in the care of this patient. Signing off at this time. Please re-consult if any acute complaints or issues arise. Time Spent With Patient Time: Total time managing care of this patient today ____ minutes.
[2023-07-30] MEDS: traZODone HCL 50 MG TABLET PO (20:46)
[2023-07-30] MEDS: Topiramate 100 MG TABLET PO (20:46)
[2023-07-31] MEDS: Topiramate 100 MG TABLET PO ×2 (08:27→21:49)
[2023-07-31] MEDS: Gabapentin 300 MG CAPSULE PO ×3 (08:27→21:48)
[2023-07-31] MEDS: Omeprazole 20 MG CAPSULE.DR PO (08:27)
[2023-07-31] MEDS: Sertraline HCL 50 MG TABLET PO (08:27)
[2023-07-31] MEDS: Folic Acid 1 MG TABLET PO (08:27)
[2023-07-31] MEDS: valACYclovir HCL 1,000 MG TABLET 1000 MG PO (08:27)
[2023-07-31] MEDS: HaloperidoL 5 MG TABLET PO ×2 (08:27→21:49)
[2023-07-31 08:40] VITALS: BP 105/56; PULSE 74; TEMP 36.3; O2SAT 97
--- NOTE | 2023-07-31 09:59 | HO.PSYCHPN ---
Subjective Subjective Date of Service: 07/31/23 Reason For Visit: Depression/SI Subjective Notes: Conditional Voluntary and 3 Day Healthcare Proxy: No Guardianship: No Medical Problems Affecting Mental Status: No Interim History: Pt seen, discussed in team meeting. Pt in bed today. Denies issues of concern, appears anergic, tired. No questions regarding psychotropic medication literature with provided 07/30/23. No questions regarding neurology consultation on 07/30/23. Reports adequate sleep, intake Denies SI, HI, AH, VH Medication Compliance: Yes Side effects from medications: No Attending Groups: No Review of Systems Acute medical concerns: No Medical Review of Systems: unchanged Review of Systems Review of Systems Yes all other systems are reviewed and are negative Mental Status Exam Mental Status Exam Patient Appearance: Appropriate Patient Orientation: Person, Place, Time and Situation Level of Consciousness: Alert Patient Behavior: Talkative and Good Eye Contact Mood Description: Depressed and Anxious Affect Description: Flat Patient Cognition Impaired: No Ability to Follow Directions: Good Speech Pattern: Spontaneous Speech Memory Description: Intact Hallucinations: None Delusions: Not Present Perceptual Disturbances: Depersonalization Thought Process: Rumination Thought Content: positive for Racing (inc anxiety at night, racing of thoughts-variable subjects) and positive for Suicidal Ideation (denies) Depressive Symptoms: Increased Anxiety, Muscle Tension, Difficulty Sleeping, Changes in Appetite, Loss of Int. in Activity and Thoughts of /Suicide (denies) Judgement: Good Diagnostics Vital Signs (24Hr): Vital Signs - 24 hr 07/30/23 18:00 07/31/23 08:40 Temperature 97.3 F 97.3 F Pulse Rate 94 74 Blood Pressure 110/70 105/56 L Pulse Oximetry 97 Oxygen Delivery Method Room Air BMI result Body Mass Index 44.2 Labs 07/26/23 15:23 07/26/23 15:23 Labs: Laboratory Results - last 48 hr 07/30/23 08:44 Estimat Average Glucose 105 Hemoglobin A1c % 5.3 Triglycerides 85 Cholesterol 155 LDL Cholesterol, Calc 92 HDL Cholesterol 46 Imaging Radiology Impressions: ITS Impressions Chest X-Ray 07/26/23 16:55 IMPRESSION: *No cardiopulmonary abnormalities. Lungs clear. *Right upper quadrant cholecystectomy clips. Pelvic/Transvag US 07/26/23 19:40 IMPRESSION: 1. Single intrauterine gestation sac and likely pole. Mean gestational sac measurement of 0.94 cm corresponds to ultrasound gestational age of 5 weeks 4 days. There are at least 2 uterine fibroids visualized which are grossly stable. Medications Medications Current Medications Acetaminophen (Acetaminophen 325 Mg Tablet) 650 mg PO Q6H PRN PRN Reason: Headache/Pain Mild Scale (1-3) Last Admin: 07/30/23 16:35 Dose: 650 mg Folic Acid (Folic Acid 1 Mg Tablet) 1 mg PO DAILY [facility] Last Admin: 07/31/23 08:27 Dose: 1 mg Gabapentin (Gabapentin 300 Mg Capsule) 300 mg PO TID [facility] Last Admin: 07/31/23 08:27 Dose: 300 mg Haloperidol (Haloperidol 5 Mg Tablet) 5 mg PO BID [facility] Last Admin: 07/31/23 08:27 Dose: 5 mg Omeprazole (Omeprazole 20 Mg Capsule.Dr) 20 mg PO DAILY [facility] Last Admin: 07/31/23 08:27 Dose: 20 mg Ondansetron HCl (Ondansetron Odt 4 Mg Tab.Rapdis) 4 mg TRANSLINGU Q6H PRN PRN Reason: nausea and vomiting Last Admin: 07/27/23 17:30 Dose: 4 mg Sertraline HCl (Sertraline Hcl 50 Mg Tablet) 50 mg PO DAILY [facility] Last Admin: 07/31/23 08:27 Dose: 50 mg Topiramate (Topiramate 100 Mg Tablet) 100 mg PO BID [facility] Last Admin: 07/31/23 08:27 Dose: 100 mg Trazodone HCl (Trazodone Hcl 50 Mg Tablet) 50 mg PO BEDTIME MRX1 PRN PRN Reason: Insomnia Last Admin: 07/30/23 20:46 Dose: 50 mg Valacyclovir HCl (Valacyclovir Hcl 1,000 Mg Tablet) 1,000 mg PO DAILY [facility] Last Admin: 07/31/23 08:27 Dose: 1,000 mg Allergies Allergies Allergy/AdvReac Type Severity Reaction Status Date / Time amoxicillin Allergy Unknown hives Verified 05/28/23 12:13 penicillin V Allergy Unknown RASH Verified 05/28/23 12:13 morphine AdvReac Unknown Verified 05/28/23 20:03 fish Allergy Unknown anaphylaxis Uncoded 01/11/22 17:02 NUTS Allergy Unknown anaphylaxis Uncoded 01/11/22 17:02 Assessment & Plan Assessment & Plan (1) Recurrent major depression: Status: Acute Code(s): F33.9 - Major depressive disorder, recurrent, unspecified (2) PTSD (post-traumatic stress disorder): Status: Acute Code(s): F43.10 - Post-traumatic stress disorder, unspecified (3) Nonepileptic attack disorder: Status: Acute Code(s): F44.5 - Conversion disorder with seizures or convulsions (4) : Status: Acute Code(s): Z34.90 - Encounter for supervision of normal , unspecified, unspecified trimester Plan 37 yo female, history of PTSD, Depression, Seizure Disorder-she is unsure if this is epileptic in origin and newly revealed of 5 weeks, reports SI with a plan to inflict a gunshot wound on herself. Reports body pain, bone pain, like bones are feeling crushed for the past ~7 days. Reports decrease sleep, appetite and not being prescribed scheduled haldol by OP team. Reports intrusive racing thoughts, especially at night. Plan: Pt asks to restart Topamax as she fears seizure. Education provided regarding risks, Handouts given regarding psychotropic medications and for her review. Neurology consult to discuss with pt. Sertraline 50 mg daily Hold hydroxyzine Collateral contact Full milieu Process with pt new diagnosis and offer supports to assist her in decision making. Pt has asked to be referred to [facility] again for services. 07/31/23: Continue tx Informed Consent: understands Reason for continued inpatient stay Substantial Risk for: rapid decompensation and med/psych decompensation Time Spent With Patient Time: Total time managing care of this patient today ____ minutes.
[2023-07-31] MEDS: Acetaminophen 325 MG TABLET 650 MG PO (17:00)
[2023-07-31] MEDS: traZODone HCL 50 MG TABLET PO (21:49)
[2023-07-31 21:50] VITALS: BP 103/58; PULSE 62; TEMP 36.3
[2023-08-01 08:38] VITALS: BP 109/59; PULSE 84; RESP 16; TEMP 36.1; O2SAT 95
[2023-08-01] MEDS: Acetaminophen 325 MG TABLET 650 MG PO ×2 (08:41→16:27)
[2023-08-01] MEDS: HaloperidoL 5 MG TABLET PO ×2 (08:42→20:56)
[2023-08-01] MEDS: Sertraline HCL 50 MG TABLET PO (08:42)
[2023-08-01] MEDS: Topiramate 100 MG TABLET PO ×2 (08:42→20:56)
[2023-08-01] MEDS: Gabapentin 300 MG CAPSULE PO ×4 (08:42→20:56)
[2023-08-01] MEDS: Omeprazole 20 MG CAPSULE.DR PO (08:42)
[2023-08-01] MEDS: valACYclovir HCL 1,000 MG TABLET 1000 MG PO (08:42)
[2023-08-01] MEDS: Folic Acid 1 MG TABLET PO (08:42)
--- NOTE | 2023-08-01 10:32 | P.PNPSI_ITS ---
Subjective Subjective Date of Service: 08/01/23 Reason For Visit: Depression/SI Subjective Notes: Conditional Voluntary and 3 Day Healthcare Proxy: No Guardianship: No Medical Problems Affecting Mental Status: No Interim History: Pt reports doing well. Discussed her decision to terminate current Asks for assist scheduling with [facility]ain[facility] Frazier-will call on 08/03. Gabapentin increase to assist with anxiety Pt attempting to reach her room-mate without luck today (Charu Oglesby [phone]) Medication Compliance: Yes Side effects from medications: No Attending Groups: Intermittent Review of Systems Acute medical concerns: No Medical Review of Systems: unchanged Review of Systems Review of Systems Yes all other systems are reviewed and are negative Mental Status Exam Mental Status Exam Patient Appearance: Appropriate Patient Orientation: Person, Place, Time and Situation Level of Consciousness: Alert Patient Behavior: Talkative and Good Eye Contact Mood Description: Depressed and Anxious Affect Description: Flat Patient Cognition Impaired: No Ability to Follow Directions: Good Speech Pattern: Spontaneous Speech Memory Description: Intact Hallucinations: None Delusions: Not Present Perceptual Disturbances: Depersonalization Thought Process: Rumination Thought Content: positive for Racing (inc anxiety at night, racing of thoughts- variable subjects) and positive for Suicidal Ideation (denies) Depressive Symptoms: Increased Anxiety, Muscle Tension, Difficulty Sleeping, Changes in Appetite, Loss of Int. in Activity and Thoughts of /Suicide (denies) Judgement: Good Diagnostics Vital Signs (24Hr): Vital Signs - 24 hr 07/31/23 21:50 08/01/23 08:38 Temperature 97.3 F 96.9 F Pulse Rate 62 84 Respiratory Rate 16 Blood Pressure 103/58 L 109/59 L Pulse Oximetry 95 Oxygen Delivery Method Room Air BMI result Body Mass Index 44.2 Labs 07/26/23 15:23 07/26/23 15:23 Imaging Radiology Impressions: ITS Impressions Chest X-Ray 07/26/23 16:55 IMPRESSION: *No cardiopulmonary abnormalities. Lungs clear. *Right upper quadrant cholecystectomy clips. Pelvic/Transvag US 07/26/23 19:40 IMPRESSION: 1. Single intrauterine gestation sac and likely pole. Mean gestational sac measurement of 0.94 cm corresponds to ultrasound gestational age of 5 weeks 4 days. There are at least 2 uterine fibroids visualized which are grossly stable. Medications Medications Current Medications Acetaminophen (Acetaminophen 325 Mg Tablet) 650 mg PO Q6H PRN PRN Reason: Headache/Pain Mild Scale (1-3) Last Admin: 08/01/23 08:41 Dose: 650 mg Folic Acid (Folic Acid 1 Mg Tablet) 1 mg PO DAILY [facility] Last Admin: 08/01/23 08:42 Dose: 1 mg Gabapentin (Gabapentin 300 Mg Capsule) 300 mg PO TID [facility] Last Admin: 08/01/23 08:42 Dose: 300 mg Haloperidol (Haloperidol 5 Mg Tablet) 5 mg PO BID [facility] Last Admin: 08/01/23 08:42 Dose: 5 mg Omeprazole (Omeprazole 20 Mg Capsule.Dr) 20 mg PO DAILY [facility] Last Admin: 08/01/23 08:42 Dose: 20 mg Ondansetron HCl (Ondansetron Odt 4 Mg Tab.Rapdis) 4 mg TRANSLINGU Q6H PRN PRN Reason: nausea and vomiting Last Admin: 07/27/23 17:30 Dose: 4 mg Sertraline HCl (Sertraline Hcl 50 Mg Tablet) 50 mg PO DAILY [facility] Last Admin: 08/01/23 08:42 Dose: 50 mg Topiramate (Topiramate 100 Mg Tablet) 100 mg PO BID [facility] Last Admin: 08/01/23 08:42 Dose: 100 mg Trazodone HCl (Trazodone Hcl 50 Mg Tablet) 50 mg PO BEDTIME MRX1 PRN PRN Reason: Insomnia Last Admin: 07/31/23 21:49 Dose: 50 mg Valacyclovir HCl (Valacyclovir Hcl 1,000 Mg Tablet) 1,000 mg PO DAILY [facility] Last Admin: 08/01/23 08:42 Dose: 1,000 mg Allergies Allergies Allergy/AdvReac Type Severity Reaction Status Date / Time amoxicillin Allergy Unknown hives Verified 05/28/23 12:13 penicillin V Allergy Unknown RASH Verified 05/28/23 12:13 morphine AdvReac Unknown Verified 05/28/23 20:03 fish Allergy Unknown anaphylaxis Uncoded 01/11/22 17:02 NUTS Allergy Unknown anaphylaxis Uncoded 01/11/22 17:02 Assessment & Plan Assessment & Plan (1) Recurrent major depression: Status: Acute Code(s): F33.9 - Major depressive disorder, recurrent, unspecified (2) PTSD (post-traumatic stress disorder): Status: Acute Code(s): F43.10 - Post-traumatic stress disorder, unspecified (3) Nonepileptic attack disorder: Status: Acute Code(s): F44.5 - Conversion disorder with seizures or convulsions (4) : Status: Acute Code(s): Z34.90 - Encounter for supervision of normal , unspecified, unspecified trimester Plan 37 yo female, history of PTSD, Depression, Seizure Disorder-she is unsure if this is epileptic in origin and newly revealed of 5 weeks, reports SI with a plan to inflict a gunshot wound on herself. Reports body pain, bone pain, like bones are feeling crushed for the past ~7 days. Reports decrease sleep, appetite and not being prescribed scheduled haldol by OP team. Reports intrusive racing thoughts, especially at night. Plan: Pt asks to restart Topamax as she fears seizure. Education provided regarding risks, Handouts given regarding psychotropic medications and for her review. Neurology consult to discuss with pt. Sertraline 50 mg daily Hold hydroxyzine Collateral contact Full milieu Process with pt new diagnosis and offer supports to assist her in decision making. Pt has asked to be referred to [facility] again for services. 07/31/23: Continue tx 08/01/23: Continue tx Patient educated on: therapeutic strategies Informed Consent: understands Reason for continued inpatient stay Substantial Risk for: rapid decompensation Time Spent With Patient Time: Total time managing care of this patient today ____ minutes.
[2023-08-01 16:40] VITALS: BP 125/58; PULSE 80; TEMP 36.7; O2SAT 97
[2023-08-01] MEDS: traZODone HCL 50 MG TABLET PO (20:56)
[2023-08-02] MEDS: valACYclovir HCL 1,000 MG TABLET 1000 MG PO (08:26)
[2023-08-02] MEDS: Omeprazole 20 MG CAPSULE.DR PO (08:26)
[2023-08-02] MEDS: Sertraline HCL 50 MG TABLET PO (08:27)
[2023-08-02] MEDS: Folic Acid 1 MG TABLET PO (08:27)
[2023-08-02] MEDS: Gabapentin 300 MG CAPSULE PO ×3 (08:27→20:17)
[2023-08-02] MEDS: Topiramate 100 MG TABLET PO ×2 (08:27→20:16)
[2023-08-02] MEDS: HaloperidoL 5 MG TABLET PO ×2 (08:27→20:17)
[2023-08-02 08:30] VITALS: BP 105/55; PULSE 70; RESP 16; TEMP 36.5; O2SAT 97
[2023-08-02] MEDS: Acetaminophen 325 MG TABLET 650 MG PO (09:58)
[2023-08-02 18:00] VITALS: BP 122/59; PULSE 78; RESP 18; TEMP 36.3; O2SAT 98
[2023-08-02] MEDS: traZODone HCL 50 MG TABLET PO (20:16)
[2023-08-03 08:00] VITALS: BP 128/61; PULSE 77; RESP 16; TEMP 36.3; O2SAT 95
[2023-08-03] MEDS: valACYclovir HCL 1,000 MG TABLET 1000 MG PO (08:23)
[2023-08-03] MEDS: HaloperidoL 5 MG TABLET PO (08:24)
[2023-08-03] MEDS: Omeprazole 20 MG CAPSULE.DR PO (08:24)
[2023-08-03] MEDS: Gabapentin 300 MG CAPSULE PO (08:24)
[2023-08-03] MEDS: Folic Acid 1 MG TABLET PO (08:24)
[2023-08-03] MEDS: Sertraline HCL 50 MG TABLET PO (08:24)
[2023-08-03] MEDS: Topiramate 100 MG TABLET PO (08:24)
[2023-08-03] MEDS: Acetaminophen 325 MG TABLET 650 MG PO (08:52)
--- NOTE | 2023-08-03 09:38 | HO.PSYCHPN ---
Subjective Subjective Date of Service: 08/02/23 Reason For Visit: Depression/SI Subjective Notes: 3 Day Interim History: Pt continues to plan discharge for 08/03. No SI/HI/symptoms of psychosis. Will attempt to schedule OB follow up with [facility]ain[facility] Frazier on 08/03/23. Pt reports she has been seen there in the past. [facility] declined consult to meet with pt as they do not practice maternity care any longer. Pt continues to focus on termination due to DCF taking her one year old and feeling that this would occur again. Medication Compliance: Yes Side effects from medications: No Attending Groups: Intermittent Review of Systems Acute medical concerns: No Medical Review of Systems: unchanged Review of Systems Review of Systems Yes all other systems are reviewed and are negative Mental Status Exam Mental Status Exam Patient Appearance: Appropriate Patient Orientation: Person, Place, Time and Situation Level of Consciousness: Alert Patient Behavior: Talkative and Good Eye Contact Mood Description: Depressed and Anxious Affect Description: Flat Patient Cognition Impaired: No Ability to Follow Directions: Good Speech Pattern: Spontaneous Speech Memory Description: Intact Hallucinations: None Delusions: Not Present Perceptual Disturbances: Depersonalization Thought Process: Rumination Thought Content: positive for Racing (inc anxiety at night, racing of thoughts-variable subjects) and positive for Suicidal Ideation (denies) Depressive Symptoms: Increased Anxiety, Muscle Tension, Difficulty Sleeping, Changes in Appetite, Loss of Int. in Activity and Thoughts of /Suicide (denies) Judgement: Good Diagnostics Vital Signs (24Hr): Vital Signs - 24 hr 08/02/23 18:00 08/03/23 08:00 Temperature 97.3 F 97.4 F Pulse Rate 78 77 Respiratory Rate 18 16 Blood Pressure 122/59 L 128/61 Pulse Oximetry 98 95 Oxygen Delivery Method Room Air BMI result Body Mass Index 44.2 Labs 07/26/23 15:23 07/26/23 15:23 Imaging Radiology Impressions: ITS Impressions Chest X-Ray 07/26/23 16:55 IMPRESSION: *No cardiopulmonary abnormalities. Lungs clear. *Right upper quadrant cholecystectomy clips. Pelvic/Transvag US 07/26/23 19:40 IMPRESSION: 1. Single intrauterine gestation sac and likely pole. Mean gestational sac measurement of 0.94 cm corresponds to ultrasound gestational age of 5 weeks 4 days. There are at least 2 uterine fibroids visualized which are grossly stable. Medications Medications Current Medications Acetaminophen (Acetaminophen 325 Mg Tablet) 650 mg PO Q6H PRN PRN Reason: Headache/Pain Mild Scale (1-3) Last Admin: 08/03/23 08:52 Dose: 650 mg Folic Acid (Folic Acid 1 Mg Tablet) 1 mg PO DAILY [facility] Last Admin: 08/03/23 08:24 Dose: 1 mg Gabapentin (Gabapentin 300 Mg Capsule) 300 mg PO QID [facility] Last Admin: 08/03/23 08:24 Dose: 300 mg Haloperidol (Haloperidol 5 Mg Tablet) 5 mg PO BID [facility] Last Admin: 08/03/23 08:24 Dose: 5 mg Omeprazole (Omeprazole 20 Mg Capsule.Dr) 20 mg PO DAILY [facility] Last Admin: 08/03/23 08:24 Dose: 20 mg Ondansetron HCl (Ondansetron Odt 4 Mg Tab.Rapdis) 4 mg TRANSLINGU Q6H PRN PRN Reason: nausea and vomiting Last Admin: 07/27/23 17:30 Dose: 4 mg Sertraline HCl (Sertraline Hcl 50 Mg Tablet) 50 mg PO DAILY [facility] Last Admin: 08/03/23 08:24 Dose: 50 mg Topiramate (Topiramate 100 Mg Tablet) 100 mg PO BID [facility] Last Admin: 08/03/23 08:24 Dose: 100 mg Trazodone HCl (Trazodone Hcl 50 Mg Tablet) 50 mg PO BEDTIME MRX1 PRN PRN Reason: Insomnia Last Admin: 08/02/23 20:16 Dose: 50 mg Valacyclovir HCl (Valacyclovir Hcl 1,000 Mg Tablet) 1,000 mg PO DAILY [facility] Last Admin: 08/03/23 08:23 Dose: 1,000 mg Allergies Allergies Allergy/AdvReac Type Severity Reaction Status Date / Time amoxicillin Allergy Unknown hives Verified 05/28/23 12:13 penicillin V Allergy Unknown RASH Verified 05/28/23 12:13 morphine AdvReac Unknown Verified 05/28/23 20:03 fish Allergy Unknown anaphylaxis Uncoded 01/11/22 17:02 NUTS Allergy Unknown anaphylaxis Uncoded 01/11/22 17:02 Assessment & Plan Assessment & Plan (1) Recurrent major depression: Status: Acute Code(s): F33.9 - Major depressive disorder, recurrent, unspecified (2) PTSD (post-traumatic stress disorder): Status: Acute Code(s): F43.10 - Post-traumatic stress disorder, unspecified (3) Nonepileptic attack disorder: Status: Acute Code(s): F44.5 - Conversion disorder with seizures or convulsions (4) : Status: Acute Code(s): Z34.90 - Encounter for supervision of normal , unspecified, unspecified trimester Plan 37 yo female, history of PTSD, Depression, Seizure Disorder-she is unsure if this is epileptic in origin and newly revealed of 5 weeks, reports SI with a plan to inflict a gunshot wound on herself. Reports body pain, bone pain, like bones are feeling crushed for the past ~7 days. Reports decrease sleep, appetite and not being prescribed scheduled haldol by OP team. Reports intrusive racing thoughts, especially at night. Plan: Pt asks to restart Topamax as she fears seizure. Education provided regarding risks, Handouts given regarding psychotropic medications and for her review. Neurology consult to discuss with pt. Sertraline 50 mg daily Hold hydroxyzine Collateral contact Full milieu Process with pt new diagnosis and offer supports to assist her in decision making. Pt has asked to be referred to [facility] again for services. 07/31/23: Continue tx 08/01/23: Continue tx 08/02/23: Discharge on a three day notice 08/03/23 Informed Consent: understands Reason for continued inpatient stay Substantial Risk for: stable for discharge Time Spent With Patient Time: Total time managing care of this patient today ____ minutes.
--- NOTE | 2023-08-04 16:41 | P.DS_ITS ---
DS: Providers Provider Date of Service: 08/03/23 Date of admission: 07/29/23 15:44 Date of discharge: 08/03/23 Primary care physician: Mary Ann Ward NP Admitting clinician: Meri Fraire Attending physician on admission: Justice Dickinson Consults: 07/29/23 16:09 Consult to Hospitalist Routine Comment: Consulting Provider: Hospitalist Reason For Exam: ; on Acetazolamide; assess glacoma risk 07/30/23 11:06 Consult to Neurology Routine Consulting Provider: [facility] Reason for consultation: Seizure Disorder, currently on Topamax, 5 weeks Has provider been notified: Yes Attending physician on discharge: Justice Dickinson Discharging clinician: Meri Fraire DS: Diagnosis Discharge Diagnosis (1) Recurrent major depression: Status: Acute (2) PTSD (post-traumatic stress disorder): Status: Acute (3) Nonepileptic attack disorder: Status: Acute (4) : Status: Acute DS: Medications Discharge Medications Home Medications: Home Medications Medication Instructions Recorded Confirmed acetazolamide 500 mg 500 mg PO BID 07/27/23 07/27/23 capsule,extended release cetirizine 10 mg tablet 10 mg PO DAILY 07/27/23 07/27/23 loratadine 10 mg tablet 10 mg PO DAILY 07/27/23 07/27/23 omeprazole 20 mg capsule,delayed 20 mg PO DAILY 07/27/23 07/27/23 release valacyclovir 1 gram tablet 1,000 mg PO DAILY 07/27/23 07/27/23 Previous Rx's Medication Instructions Recorded ondansetron 4 mg disintegrating 4 mg PO Q6H PRN nausea and 05/29/23 tablet vomiting #10 tabs folic acid 1 mg tablet 1 mg PO DAILY #30 tabs 08/03/23 gabapentin 300 mg capsule 300 mg PO QID #120 caps 08/03/23 haloperidol 5 mg tablet 5 mg PO BID #60 tabs 08/03/23 sertraline 50 mg tablet 50 mg PO DAILY #30 tabs 08/03/23 topiramate 100 mg tablet 100 mg PO BID #14 tabs 08/03/23 topiramate 100 mg tablet 100 mg PO BID #60 tabs 08/03/23 Mental Status Exam Mental Status Exam Patient Appearance: Appropriate Patient Orientation: Person, Place, Time and Situation Level of Consciousness: Alert Patient Behavior: Talkative and Good Eye Contact Mood Description: Depressed and Anxious Affect Description: Flat Patient Cognition Impaired: No Ability to Follow Directions: Good Speech Pattern: Spontaneous Speech Memory Description: Intact Hallucinations: None Delusions: Not Present Perceptual Disturbances: Depersonalization Thought Process: Rumination Thought Content: positive for Racing (inc anxiety at night, racing of thoughts- variable subjects) and positive for Suicidal Ideation (denies) Depressive Symptoms: Increased Anxiety, Muscle Tension, Difficulty Sleeping, Changes in Appetite, Loss of Int. in Activity and Thoughts of /Suicide (denies) Judgement: Good Data Data Completed and Pending Completed studies during hospitalization [Text1]: 07/30/23 08:44 Estimat Average Glucose 105 Hemoglobin A1c % 5.3 Triglycerides 85 Cholesterol 155 LDL Cholesterol, Calc 92 HDL Cholesterol 46 Imaging Diagnostic Imaging Impressions Chest X-Ray 07/26/23 16:55 IMPRESSION: *No cardiopulmonary abnormalities. Lungs clear. *Right upper quadrant cholecystectomy clips. Pelvic/Transvag US 07/26/23 19:40 IMPRESSION: 1. Single intrauterine gestation sac and likely pole. Mean gestational sac measurement of 0.94 cm corresponds to ultrasound gestational age of 5 weeks 4 days. There are at least 2 uterine fibroids visualized which are grossly stable. DS: Summary Hospital Course Hospital Course: Admission to adult psychiatry for exacerbation of PTSD, Major Depression with Psychosis, Psychogenic Seizure Disorder. Pt learned while in the ER she was five weeks . She reported OP team did not refill Haldol and she began to experience intrusive thoughts and resulting SI. Regime was re-established. E ducation was provided regarding psychotropic medication and . Pt asked for assistance in scheduling termination. [facility] was contacted (pt has a history of working with them). They will connect with her for scheduling. Pt will return to [facility] for out patient treatment. Status at Discharge Functional status at discharge: independent ambulation Overall status at discharge: patient is progressing back to baseline Time Spent with Patient Time attestation: Total time managing care of this patient today ____ minutes. 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 ) Mary Ann Ward NP [Primary Care Provider] - 08/06/23 11:00 am (In person appointment) Discharge Medications: New gabapentin 300 mg Capsule 300 mg PO QID Qty: 120 0RF folic acid 1 mg Tablet 1 mg PO DAILY Qty: 30 0RF topiramate 100 mg Tablet 100 mg PO BID Qty: 14 0RF sertraline 50 mg Tablet 50 mg PO DAILY Qty: 30 0RF Continued valacyclovir 1 gram tablet 1,000 mg PO DAILY omeprazole 20 mg capsule,delayed release(DR/EC) 20 mg PO DAILY haloperidol 5 mg tablet 5 mg PO BID Qty: 60 0RF topiramate 100 mg tablet 100 mg PO BID Qty: 60 0RF Held ondansetron 4 mg tablet,disintegrating 4 mg PO Q6H PRN (Reason: nausea and vomiting) Qty: 10 0RF Hold Instructions: Until consult with OB has occurred cetirizine 10 mg tablet 10 mg PO DAILY Hold Instructions: Hold until OB consult completed acetazolamide 500 mg capsule, extended release 500 mg PO BID Hold Instructions: Until consult with OB has occurred loratadine 10 mg tablet 10 mg PO DAILY Hold Instructions: Hold until OB consult is complete Discontinued gabapentin 300 mg Tablet 300 mg PO TID Discharge Orders: Discharge Order (Routine); Ordered 08/03/23 Ordered By: Meri Fraire Diet: Advance to usual diet Activity on Discharge: As tolerated Stand Alone Forms: Patient Portal Discharge page, Community Support Care Plan Goals: Mood and Behavioral Stabilization Health Concerns: Mood and Behavioral Stabilization ~6 weeks Plan of Treatment: Attend scheduled appointments Take medications as directed Today, [facility] was called, . They will call the cell phone number you gave us- [phone] today to schedule an appointment to consult regarding your request for termination. If you do not hear from them today, please call their office to follow up. Assessment: Discharge on a three day notice of intent. Discharge Date/Time: 08/03/23 11:53
== END 2023-08-03 11:53 | disposition home or self-care (01) | DRG 832 ==
LOC: HO.ED 07-27 15:32 → HO.PM5 07-29 16:09
PROVIDERS: Physician Assistant Medical; Registered Nurse Emergency; Admitting Provider Psychiatry & Neurology Psychiatry; Emergency Provider Internal Medicine; PCP Nurse Practitioner Primary Care; Visit Provider Clinical Nurse Specialist Psychiatric/Mental Health, Adult
DX: O99.341 Other mental disorders complicating pregnancy, first trimester (principal); F33.9 Major depressive disorder, recurrent, unspecified; R45.851 Suicidal ideations; F44.5 Conversion disorder with seizures or convulsions; F43.10 Post-traumatic stress disorder, unspecified; O99.331 Smoking (tobacco) complicating pregnancy, first trimester; O99.351 Diseases of the nervous system complicating pregnancy, first trimester; G43.009 Migraine without aura, not intractable, without status migrainosus; G93.2 Benign intracranial hypertension; J45.909 Unspecified asthma, uncomplicated; O99.511 Diseases of the respiratory system complicating pregnancy, first trimester; Z3A.01 Less than 8 weeks gestation of pregnancy; F17.210 Nicotine dependence, cigarettes, uncomplicated; Z20.822 Contact with and (suspected) exposure to COVID-19; Z71.6 Tobacco abuse counseling; Z79.899 Other long term (current) drug therapy
CPT/HCPCS: 36415; 71046; 76801; 76817; 80053; 80061; 80143; 80179; 80307; 81001; 81025; 83036; 84702; 85025; 86900; 86901; 87502; 87635; 99285; 99499; J2765; S9485

== ENCOUNTER → 2023-07-29 15:44 | Outpatient (BNV) | payer MEDICAID, SELFPAY | PROVIDERS: Admitting Provider Psychiatry & Neurology Psychiatry; Emergency Provider Internal Medicine; PCP Nurse Practitioner Primary Care; Visit Provider Psychiatry & Neurology Neurology | DX: G43.719 Chronic migraine without aura, intractable, without status migrainosus (principal); F44.5 Conversion disorder with seizures or convulsions; Z33.1 Pregnant state, incidental | CPT/HCPCS: 99222 ==

== ENCOUNTER → 2023-07-29 15:44 | Outpatient (BNV) | payer OTHER, SELFPAY | PROVIDERS: Admitting Provider Psychiatry & Neurology Psychiatry; Emergency Provider Internal Medicine; PCP Nurse Practitioner Primary Care; Visit Provider Social Worker | DX: F33.2 Major depressive disorder, recurrent severe without psychotic features (principal); F43.11 Post-traumatic stress disorder, acute; F44.5 Conversion disorder with seizures or convulsions; Z34.90 Encounter for supervision of normal pregnancy, unspecified, unspecified trimester | CPT/HCPCS: 90792; 99231; 99232; 99238 ==